=== PATIENT | male | born 1945 | race Caucasian/White ===

== ENCOUNTER 2020-09-27 15:04 | Outpatient (REF) | payer MEDICARE, SELFPAY | END 2020-09-27 15:05 | disposition home or self-care (01) | LOC: HO.LAB 15:04 | PROVIDERS: Visit Provider Nurse Practitioner Family | DX: L02.91 Cutaneous abscess, unspecified (principal) | CPT/HCPCS: 87071; 87205 ==

== ENCOUNTER 2022-02-18 18:55 | Emergency (ER) | payer MEDICARE, SELFPAY ==
[2022-02-18 19:00] VITALS: BP 188/88; PULSE 88; RESP 18; TEMP 36.1; O2SAT 96; BMI 34.9
--- NOTE | 2022-02-18 23:18 | ED_ITS ---
HPI - Animal Bite General Chief Complaint: Skin/Abscess/Foreign Body Stated Complaint: dog bite left thigh Time Seen by Provider: 02/18/22 23:14 Source: patient Mode of arrival: ambulatory Limitations: no limitations History of Present Illness HPI narrative: patient was at [employer] game some one walking with 2 doodle dogs 1 of the dog ran and bit him on his left thigh bit him on to his left thigh. Patient does not know about the office administration of the dog unable to find more details patient been vaccinated against rabies long time ago. Related Data Home Medications Medication Instructions Recorded Confirmed amoxicillin 500 mg capsule 2,000 mg PO ONCE 09/27/20 chlorhexidine gluconate 0.12 % 15 ml PO BID 09/27/20 mouthwash clopidogrel 75 mg tablet 75 mg PO DAILY 09/27/20 finasteride 5 mg tablet 5 mg PO DAILY 09/27/20 flu vacc [id number](65yr up)-PF 240 ml IM 09/27/20 mcg/0.7 mL intramuscular syringe levothyroxine 88 mcg tablet 88 mcg PO DAILY 09/27/20 naproxen 500 mg tablet 500 mg PO BID PRN 09/27/20 quetiapine 50 mg tablet 50 mg PO DAILY 09/27/20 simvastatin 40 mg tablet 40 mg PO BEDTIME 09/27/20 tamsulosin 0.4 mg capsule 0.8 mg PO DAILY 09/27/20 Previous Rx's Medication Instructions Recorded cephalexin 500 mg capsule (Keflex) 500 mg PO QID 7 Days #28 cap 09/27/20 sulfamethoxazole 800 1 tab PO Q12H 10 Days #20 tab 10/02/20 mg-trimethoprim 160 mg tablet (Bactrim DS) amoxicillin 875 mg-potassium 1 tab PO BID #20 tab 02/19/22 clavulanate 125 mg tablet Allergies Allergy/AdvReac Type Severity Reaction Status Date / Time No Known Allergies Allergy Verified 02/18/22 19:00 Review of Systems Review of Systems: Yes all other systems are reviewed and are negative [facility] Social History Social History Advance Directives: No Advance Directives Information Provided: No Physical Exam ED Vital Signs: Vital Signs - 24 hr 02/18/22 19:00 Temperature 97 F Pulse Rate 88 Respiratory Rate 18 Blood Pressure 188/88 H Pulse Oximetry 96 BMI result Body Mass Index 34.9 Skin Full body images: 1. Two small superficial dog bite puncture wound esquivel MDM - Animal Bite MDM Narrative Medical decision making narrative: patient was given rabies IG in the wound and in the left thigh and vaccinated against rabies advised to follow-up as scheduled for rabies vaccine Discharge Plan Discharge Clinical Impression: Dog bite Patient Disposition: Home, Self-Care Instructions: Animal Bite (ED) Additional Instructions: rabies vaccine as scheduled try to find the dog if you could find the dog let the department know antibiotic as advised Prescriptions: New amoxicillin-pot clavulanate 875-125 mg tablet 1 tab PO BID Qty: 20 0RF No Action sulfamethoxazole-trimethoprim [Bactrim DS] 800-160 mg tablet 1 tab PO Q12H 10 Days Qty: 20 0RF finasteride 5 mg tablet 5 mg PO DAILY 0RF tamsulosin 0.4 mg capsule 0.8 mg PO DAILY 0RF quetiapine 50 mg tablet 50 mg PO DAILY 0RF simvastatin 40 mg tablet 40 mg PO BEDTIME 0RF levothyroxine 88 mcg tablet 88 mcg PO DAILY 0RF clopidogrel 75 mg tablet 75 mg PO DAILY 0RF Fluzone HighDose Quad 20-21 PF 240 mcg/0.7 mL syringe IM 0RF amoxicillin 500 mg capsule 2,000 mg PO ONCE 0RF chlorhexidine gluconate 0.12 % mouthwash 15 ml PO BID 0RF naproxen 500 mg tablet 500 mg PO BID PRN (Reason: pain) 0RF cephalexin [Keflex] 500 mg capsule 500 mg PO QID 7 Days Qty: 28 0RF
[2022-02-19] MEDS: Rabies Vaccine (PCEC)/PF 1 ML VIAL IM (00:20)
[2022-02-19] MEDS: Amoxicillin/Potassium Clav 875 MG TABLET PO (00:22)
[2022-02-19] MEDS: Rabies Immune Globulin/PF 900 UNIT/3 ML VIAL 2000 UNIT IM (00:23)
== END 2022-02-19 00:57 | disposition home or self-care (01) ==
PROVIDERS: Emergency Provider Internal Medicine; PCP Nurse Practitioner Family
DX: S70.372A Other superficial bite of left thigh, initial encounter (principal); S70.312A Abrasion, left thigh, initial encounter; M79.652 Pain in left thigh; Z20.3 Contact with and (suspected) exposure to rabies; Z29.14 Encounter for prophylactic rabies immune globulin; W54.0XXA Bitten by dog, initial encounter; Y93.9 Activity, unspecified; Y92.830 Public park as the place of occurrence of the external cause; Y99.8 Other external cause status; Z79.899 Other long term (current) drug therapy
CPT/HCPCS: 90375; 90471; 90675; 96372; 99284

== ENCOUNTER 2022-02-21 13:31 | Outpatient (REF) | payer MEDICARE, SELFPAY | END 2022-02-21 13:32 | disposition home or self-care (01) | LOC: HO.MDS 13:31 | PROVIDERS: Visit Provider Internal Medicine | DX: Z29.14 Encounter for prophylactic rabies immune globulin (principal); S70.372D Other superficial bite of left thigh, subsequent encounter; W54.0XXD Bitten by dog, subsequent encounter; Z20.3 Contact with and (suspected) exposure to rabies | CPT/HCPCS: 90471; 90675 ==

== ENCOUNTER 2022-02-25 09:07 | Outpatient (REF) | payer MEDICARE, SELFPAY | END 2022-02-25 09:08 | disposition home or self-care (01) | LOC: HO.MDS 09:07 | PROVIDERS: Visit Provider Internal Medicine | DX: Z29.14 Encounter for prophylactic rabies immune globulin (principal); S70.372D Other superficial bite of left thigh, subsequent encounter; W54.0XXD Bitten by dog, subsequent encounter; Z20.3 Contact with and (suspected) exposure to rabies | CPT/HCPCS: 90471; 90675 ==

== ENCOUNTER 2022-03-05 08:08 | Outpatient (REF) | payer MEDICARE, SELFPAY | END 2022-03-05 08:09 | disposition home or self-care (01) | LOC: HO.MDS 08:08 | PROVIDERS: Visit Provider Internal Medicine | DX: Z29.14 Encounter for prophylactic rabies immune globulin (principal); S70.372D Other superficial bite of left thigh, subsequent encounter; W54.0XXD Bitten by dog, subsequent encounter; Z20.3 Contact with and (suspected) exposure to rabies | CPT/HCPCS: 90471; 90675 ==

== ENCOUNTER 2024-02-12 10:05 | Outpatient (AMB) | payer MEDICARE, SELFPAY ==
--- NOTE | 2024-02-12 10:14 | MHC.OFFVIS ---
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 Patient had recent MRI, results as per below. He reports midline axial back pain without radiation down either lower extremity. He has been diagnosed with spinal stenosis in the past. Saw a neurosurgery, Dr. Hernández, recently was told not a candidate for surgery. Complains of midline lumbar back pain, worse with movement, bending, twisting. Denies burning, numbness, tingling or electrical pains down either lower extremity. Patient denies pain, fatigue in his legs with walking. May has been going to physical therapy for several months, reports improvement in his function and mobility but pain persists. He has been going to acupuncture for 1 year with minimal improvement of his symptoms. A couple years ago he had spinal cord stimulator placed, did not tolerate. States was very cumbersome and difficult needed his daughter to help him manage the device. It was in place for approximately 9-12 months before having it removed. Overall, he felt the spinal cord stimulator was an awful experience that did not afford him any relief. He will not consider implantable neuromodulation again. He has tried Tylenol, naproxen/NSAIDs and prescription medications all without improvement of his symptoms. He reports minimal relief with lidocaine patches. Pain today is rated as a 4/10, worse in the mornings. In terms of muscle damage condition is described as dull, sore, aching, throbbing. Pain is negatively impacting patient's enjoyment of life, recreational activities, functional mobility. [facility] Medical History (Updated 02/12/24 @ 11:25 by Briana Price) Hypothyroidism AZUCENA (obstructive sleep apnea) Hypertension Chronic low back pain Chronic kidney disease Carotid artery stenosis Bipolar 1 disorder Arthritis of foot, degenerative Anxiety Allergic rhinitis Surgical History (Updated 02/12/24 @ 11:25 by Briana Price) Hx of laminectomy History of partial colectomy Hx of appendectomy History of tonsillectomy Social History (Updated 02/12/24 @ 10:22 by Briana Price) Alcohol intake: current Alcohol intake frequency: holidays/special occasions only Patient Tobacco Use Status: Former Tobacco user Tobacco use type: Cigarette Review of Systems Const All systems reviewed & are unremarkable except as noted in HPI and below Physical Exam Vital Signs: Last Vital Signs Pulse 86 02/12/24 10:21 BP 162/79 H 02/12/24 10:21 Pulse Ox 99 02/12/24 10:21 Oxygen Delivery Method Room Air 02/12/24 10:21 BMI result Body Mass Index 33.5 General: awake, alert, oriented. Answers questions appropriately. Fully engaged in examination. Skin: warm, dry, intact HEENT: Normocephalic. Hearing intact. Cardiac: External chest normal in appearance. Respiratory: No cough, audible wheezing or stridor. Abdomen: without gross distension. MS: No obvious swelling or deformities. Able to transition from sit to stand unassisted. Ambulates with bilaterally normal heel strike and toe off SLR negative bilaterally Negative footdrop negative clonus Facet loading positive bilaterally Lumbar range of motion limited Tender over midline lumbar vertebrae and lumbar paraspinal muscles Nontender over PSIS Bilateral lower extremity strength 5/5 DTR intact Neurological: Oriented to person, place, time and situation. Thought process intact. Ambulates with use of a cane Psychiatric: Appropriate mood and affect. Good judgment and insight. Results Reviewed Results Reviewed: 11/02/2023 MRI LS Assessment & Plan Assessment & Plan (1) Lumbar spondylosis: Code(s): M47.816 - Spondylosis without myelopathy or radiculopathy, lumbar region Category: Medical (2) Spinal stenosis of lumbar region: Code(s): M48.061 - Spinal stenosis, lumbar region without neurogenic claudication Category: Medical Plan Agustín is a very pleasant 79-year-old male who presented to the office today for evaluation management of his chronic lower back pain. Patient is suffering from axial back pain secondary to lumbar facet arthropathy. Patient has exhausted greater than 6 months of conservative therapy including [id number] medications, topical medications, physical therapy, home exercise program, prescription medications, neuromodulation all without improvement of his symptoms. Continue with PT and acupuncture. Prescription sent for Salonpas topical patches pain, use as directed. Discussed options for treatment including diagnostic interventional testing, therapeutic steroid injections, peripheral nerve stimulation with Sprint, RFA and more permanent neuromodulation. Patient is not interested in spinal cord stimulation or peripheral nerve stimulation due to previous negative experience. Will schedule for fluoroscopy guided diagnostic L3-L4 DR L5 medial branch blocks with local anesthetic. If patient reports positive results of diagnostic will plan for therapeutic MBBs versus RFA. All questions and concerns have been answered and patient agrees with the plan. Follow up after injections and sooner if needed. Medications: New capsaicin-menthol 0.025-1.25 % (Salonpas (capsaicin-menthol)) may leave on area for up to 8 hrs 1 patch topical BID 6 ea 3RF pain 7 days Coding Level of Care Code New Pt Level 4 (41191) Diagnoses Lumbar spondylosis M47.816 Spinal stenosis of lumbar region M48.061
[2024-02-12 10:21] VITALS: BP 162/79; PULSE 86; O2SAT 99; BMI 33.5
== END 2024-02-12 11:06 | disposition home or self-care (01) ==
PROVIDERS: PCP Nurse Practitioner Family; Referring Provider Nurse Practitioner Family; Visit Provider Registered Nurse Emergency
DX: M47.816 Spondylosis without myelopathy or radiculopathy, lumbar region (principal); M48.061 Spinal stenosis, lumbar region without neurogenic claudication
CPT/HCPCS: 99204

== ENCOUNTER → 2024-02-12 10:05 | Outpatient (BNVA) | payer MEDICARE, SELFPAY | PROVIDERS: PCP Nurse Practitioner Family; Referring Provider Nurse Practitioner Family; Visit Provider Registered Nurse Emergency | DX: M47.816 Spondylosis without myelopathy or radiculopathy, lumbar region (principal); M48.061 Spinal stenosis, lumbar region without neurogenic claudication | CPT/HCPCS: 99202 ==

== ENCOUNTER 2024-03-05 10:48 | Outpatient (AMB) | payer MEDICARE, SELFPAY ==
--- NOTE | 2024-03-05 10:51 | AM.OFFWIN_ITS ---
Intake Vital Signs 3 03/05/24 10:52 Height 5 ft 8 in Weight 233 lb BMI 35.4 BP 120/78 Blood Pressure Location Rt brachial Position Sitting Pulse 78 Pulse Source Pulse Oximeter Pulse Oximetry (%) 98 Oxygen Delivery Method Room Air Intake Visit Reasons: Est/ spot on lower back (lobby) Intake Note: Patient here to have Mole on lower back that was noticed yesterday at PT. Patient Tobacco Use Status: Former Tobacco user Allergies No Known Allergies Allergy (Verified 03/05/24 10:53) Do you need a note to return to daycare/school/sports/work: No HPI HPI Comments 2 History of Present Illness0 Details 79 y/o male patient who presents to walk in clinic with c/o Dark spots on his back. Pt was able to secure an appointment with [facility] for July. [facility] Medical History (Updated 02/12/24 @ 11:25 by Briana Price) Hypothyroidism AZUCENA (obstructive sleep apnea) Hypertension Chronic low back pain Chronic kidney disease Carotid artery stenosis Bipolar 1 disorder Arthritis of foot, degenerative Anxiety Allergic rhinitis Surgical History (Updated 02/12/24 @ 11:25 by Briana Price) Hx of laminectomy History of partial colectomy Hx of appendectomy History of tonsillectomy Social History (Updated 02/12/24 @ 10:22 by Briana Price) Alcohol intake: current Alcohol intake frequency: holidays/special occasions only Patient Tobacco Use Status: Former Tobacco user Tobacco use type: Cigarette Review of Systems Const All systems reviewed & are unremarkable except as noted in HPI and below Physical Exam Vital Signs: Last Vital Signs Pulse 78 03/05/24 10:52 BP 120/78 03/05/24 10:52 Pulse Ox 98 03/05/24 10:52 Oxygen Delivery Method Room Air 03/05/24 10:52 BMI result Body Mass Index 35.4 Const General: comfortable and no acute distress Nutritional Appearance: overweight Orientation/consciousness: patient oriented x3 Limitations: ambulation with cane Skin Other: Dark brown Spots on the mid and lower back skin Full body images: 2 1. Small Dark Brown spots, different sizes. Neuro General: patient oriented x3, gait normal and moves all extremities Psych Speech and movement: Normal speech and movement present Assessment & Plan Assessment & Plan (1) Age spots: Code(s): L81.4 - Other melanin hyperpigmentation Plan: Common condition; Spots appear on areas exposed to the sun, such as the face, hands, shoulders and arms. Pt will f/u with Derm as scheduled. Coding Level of Care Code Est Pt Level 3 (57125) Diagnoses Age spots L81.4 Time Spent (min) 15
[2024-03-05 10:52] VITALS: BP 120/78; PULSE 78; O2SAT 98; BMI 35.4
== END 2024-03-05 12:46 | disposition home or self-care (01) ==
PROVIDERS: PCP Nurse Practitioner Family; Visit Provider Nurse Practitioner Family
DX: L81.4 Other melanin hyperpigmentation (principal)
CPT/HCPCS: 99213

== ENCOUNTER 2024-04-06 06:15 | Outpatient (REF) | payer MEDICARE, SELFPAY ==
--- NOTE | ~2024-04-06 | FL_ITS ---
EXAMINATION: XR FLUOROSCOPY WITH IMAGES CLINICAL INFORMATION: Lumbar spondylosis. COMPARISON: None available. TECHNIQUE: Fluoroscopy Supervised By: Dr. Jimmy Cooper. Fluoroscopy Time: 0.7 minutes. Cumulative Dose: 26.1 mGy. DAP: 0.453 Gy-cm2. Images: 6. FINDINGS: Intraoperative fluoroscopy and spot films were performed during a procedure in the OR. [place] are present via transforaminal approach and what appears to be L4 and L5 bilaterally. Injected contrast media is seen to be in the epidural sheath around the nerve roots. Precise levels can not be ascertained secondary to marked coning of the images with lack of appropriate landmarks. Please correlate with Dr. Jimmy Cooper's report for complete details. FL/FL guidance in treatment room IMPRESSION: Intraoperative fluoroscopy and spot films were obtained. Please see Dr. Jimmy Cooper's report for complete details.
== END 2024-04-06 06:16 | disposition home or self-care (01) ==
LOC: CF 06:15
PROVIDERS: Visit Provider Anesthesiology
DX: M47.816 Spondylosis without myelopathy or radiculopathy, lumbar region (principal); M48.061 Spinal stenosis, lumbar region without neurogenic claudication
CPT/HCPCS: 64493; 64494; J2795; Q9967

== ENCOUNTER 2024-04-06 10:33 | Outpatient (AMB) | payer MEDICARE, SELFPAY ==
--- NOTE | 2024-04-06 10:39 | A.OFFVIS_ITS ---
Vital Signs 04/06/24 11:40 04/06/24 11:41 Height 5 ft 8 in 5 ft 8 in Weight 233 lb 233 lb BMI 35.4 35.4 BP 162/96 H 171/90 H Blood Pressure Location Lt brachial Lt brachial Position Sitting Sitting Respiration 14 14 Pulse 71 69 Pulse Source Pulse Oximeter Pulse Oximeter Pulse Oximetry (%) 98 97 Oxygen Delivery Method Room Air Room Air Comment pre-op post-op Intake Visit Reasons: Diagnostic L3-L4 DR L5 MMB's Allergies No Known Allergies Allergy (Verified 04/06/24 10:41) PFSH Medical History (Updated 02/12/24 @ 11:25 by Briana Price) Hypothyroidism AZUCENA (obstructive sleep apnea) Hypertension Chronic low back pain Chronic kidney disease Carotid artery stenosis Bipolar 1 disorder Arthritis of foot, degenerative Anxiety Allergic rhinitis Surgical History (Updated 02/12/24 @ 11:25 by Briana Price) Hx of laminectomy History of partial colectomy Hx of appendectomy History of tonsillectomy Social History (Updated 02/12/24 @ 10:22 by Briana Price) Alcohol intake: current Alcohol intake frequency: holidays/special occasions only Patient Tobacco Use Status: Former Tobacco user Tobacco use type: Cigarette Physical Exam Vital Signs: Last Vital Signs Pulse 69 04/06/24 11:41 Resp 14 04/06/24 11:41 BP 171/90 H 04/06/24 11:41 Pulse Ox 97 04/06/24 11:41 Oxygen Delivery Method Room Air 04/06/24 11:41 BMI result Body Mass Index 35.4 Assessment & Plan Assessment & Plan (1) Lumbar spondylosis: Code(s): M47.816 - Spondylosis without myelopathy or radiculopathy, lumbar region Category: Medical Plan: Diagnostic medial branch block L3,L4 dorsal ramus L5 bilateral.? ? ?Informed consent was explained to the patient. All questions were explained and? answered.? The patient was taken inside the operating room where she was positioned prone on the operating table. Time-out was performed delineating correct site, side, the nature of the procedure, patient's allergy, . All operating room staff was participating in OR time-out procedure. ? ? The lower back was prepped with ChloraPrep and draped with sterile towels.? C- arm was brought over the operating field and sq picture of L4-, L5 vertebra and S1 AREA were delineated on the screen.? Point of interest were delineated as confluence of superior articular process of L4 and L5 vertebra bilaterally with corresponding transverse processes as well as confluence of the sacral alae bilaterally with superior articular process of S1.? The projection of the point of interest to the skin were injected with the small amount of local anesthetic lidocaine 2% 1-1.5 cc.? After that 22 gauge 3.5 inch spinal needle was driven sequentially to the points of interest in tunnel vision fashion. After needles gently contacted the bone at the point of interests the needle was injected with small amount of the contrast.? The injection of the contrast did not demonstrate any intravascular or intrathecal spread of the contrast.? After that injection of the? ropivacaine 0.5%-1cc was performed at each needle location.??after that the needles were removed and Bandaids were applied. ? Upon completion of the injections? needle was? removed and sterile Band-Aids were applied.? The patient tolerated procedure very well. (2) Spinal stenosis of lumbar region: Code(s): M48.061 - Spinal stenosis, lumbar region without neurogenic claudication Category: Medical Plan Agustín is a very pleasant 79-year-old male who presented to the office today for evaluation management of his chronic lower back pain. Patient is suffering from axial back pain secondary to lumbar facet arthropathy. Patient has exhausted greater than 6 months of conservative therapy including [id number]-[id number] medications, topical medications, physical therapy, home exercise program, prescription medications, neuromodulation all without improvement of his symptoms. Continue with PT and acupuncture. Prescription sent for Salonpas topical patches pain, use as directed. Discussed options for treatment including diagnostic interventional testing, therapeutic steroid injections, peripheral nerve stimulation with Sprint, RFA and more permanent neuromodulation. Patient is not interested in spinal cord stimulation or peripheral nerve stimulation due to previous negative experience. Will schedule for fluoroscopy guided diagnostic L3-L4 DR L5 medial branch blocks with local anesthetic. If patient reports positive results of diagnostic will plan for therapeutic MBBs versus RFA. All questions and concerns have been answered and patient agrees with the plan. Follow up after injections and sooner if needed. Orders: Orders FL guidance in treatment room Today M47.816 - Spondylosis without myelopathy or radiculopathy, lumbar region Coding Level of Care Code Procedure Only Diagnoses Lumbar spondylosis M47.816 Spinal stenosis of lumbar region M48.061
[2024-04-06 11:40] VITALS: BP 162/96; PULSE 71; RESP 14; O2SAT 98; BMI 35.4
[2024-04-06 11:41] VITALS: BP 171/90; PULSE 69; RESP 14; O2SAT 97; BMI 35.4
== END 2024-04-06 11:47 | disposition home or self-care (01) ==
LOC: HO.PMCPRC 10:33
PROVIDERS: PCP Nurse Practitioner Family; Visit Provider Anesthesiology
DX: M47.816 Spondylosis without myelopathy or radiculopathy, lumbar region (principal); M48.061 Spinal stenosis, lumbar region without neurogenic claudication
CPT/HCPCS: 64493; 64494

== ENCOUNTER 2024-04-14 10:14 | Outpatient (AMB) | payer MEDICARE, SELFPAY ==
--- NOTE | 2024-04-14 10:18 | MHC.OFFVIS ---
Vital Signs 04/14/24 10:20 Height 5 ft 8 in Weight 233 lb BMI 35.4 BP 145/89 H Blood Pressure Location Lt brachial Position Sitting Respiration 16 Pulse 88 Pulse Source Pulse Oximeter Pulse Oximetry (%) 98 Oxygen Delivery Method Room Air Intake Visit Reasons: diagnostic L3-L4 DR L5 medial branch blocks Allergies No Known Allergies Allergy (Verified 04/14/24 10:21) Medication List - Last Reconciled 04/14/24 by Montserrat Soto LPN atorvastatin 20 mg PO DAILY carvedilol 6.25 mg PO BID clopidogrel 75 mg PO DAILY finasteride 5 mg PO DAILY mirabegron ER (Myrbetriq) 50 mg PO DAILY quetiapine 100 mg PO BEDTIME simvastatin 40 mg PO BEDTIME tamsulosin 0.8 mg PO DAILY HPI Comments Details: Patient presents the office today for follow-up, one-week status post bilateral diagnostic L3-L4 DR L5 medial branch blocks Patient reports 100% pain relief with improvement in functional mobility during the 6 hours after the procedure States even today pain is not as severe as it was prior to the injections Denies any untoward effects Denies any pain in his legs or fatigue with walking Denies any untoward effects of the procedure Prior: Agustín is a very pleasant 79-year-old male who presents to the office today for evaluation management of his lower back pain. Patient had recent MRI, results as per below. He reports midline axial back pain without radiation down either lower extremity. He has been diagnosed with spinal stenosis in the past. Saw a neurosurgery, Dr. Hernández, recently was told not a candidate for surgery. Complains of midline lumbar back pain, worse with movement, bending, twisting. Denies burning, numbness, tingling or electrical pains down either lower extremity. Patient denies pain, fatigue in his legs with walking. May has been going to physical therapy for several months, reports improvement in his function and mobility but pain persists. He has been going to acupuncture for 1 year with minimal improvement of his symptoms. A couple years ago he had spinal cord stimulator placed, did not tolerate. States was very cumbersome and difficult needed his daughter to help him manage the device. It was in place for approximately 9-12 months before having it removed. Overall, he felt the spinal cord stimulator was an awful experience that did not afford him any relief. He will not consider implantable neuromodulation again. He has tried Tylenol, naproxen/NSAIDs and prescription medications all without improvement of his symptoms. He reports minimal relief with lidocaine patches. Pain today is rated as a 4/10, worse in the mornings. In terms of muscle damage condition is described as dull, sore, aching, throbbing. Pain is negatively impacting patient's enjoyment of life, recreational activities, functional mobility. [facility] Medical History (Updated 02/12/24 @ 11:25 by Briana Price) Hypothyroidism AZUCENA (obstructive sleep apnea) Hypertension Chronic low back pain Chronic kidney disease Carotid artery stenosis Bipolar 1 disorder Arthritis of foot, degenerative Anxiety Allergic rhinitis Surgical History (Updated 02/12/24 @ 11:25 by Briana Price) Hx of laminectomy History of partial colectomy Hx of appendectomy History of tonsillectomy Social History (Updated 02/12/24 @ 10:22 by Briana Price) Alcohol intake: current Alcohol intake frequency: holidays/special occasions only Patient Tobacco Use Status: Former Tobacco user Tobacco use type: Cigarette Review of Systems Const All systems reviewed & are unremarkable except as noted in HPI and below Physical Exam Vital Signs: Last Vital Signs Pulse 88 04/14/24 10:20 Resp 16 04/14/24 10:20 BP 145/89 H 04/14/24 10:20 Pulse Ox 98 04/14/24 10:20 Oxygen Delivery Method Room Air 04/14/24 10:20 BMI result Body Mass Index 35.4 General: awake, alert, oriented. Answers questions appropriately. Fully engaged in examination. Skin: warm, dry, intact HEENT: Normocephalic. Hearing intact. Cardiac: External chest normal in appearance. Respiratory: No cough, audible wheezing or stridor. Abdomen: without gross distension. MS: No obvious swelling or deformities. Able to transition from sit to stand unassisted. Ambulates with bilaterally normal heel strike and toe off Neurological: Oriented to person, place, time and situation. Thought process intact. Ambulates with use of a cane Psychiatric: Appropriate mood and affect. Good judgment and insight. Results Reviewed Results Reviewed: 11/02/2023 MRI LS Assessment & Plan Assessment & Plan (1) Lumbar spondylosis: Code(s): M47.816 - Spondylosis without myelopathy or radiculopathy, lumbar region Category: Medical (2) Spinal stenosis of lumbar region: Code(s): M48.061 - Spinal stenosis, lumbar region without neurogenic claudication Category: Medical Plan Agustín is a very pleasant 79-year-old male who presented to the office today for follow-up, one-week status post bilateral diagnostic L3-L4 DR L5 medial branch blocks Reports 100% pain relief with improvement in functional mobility may 6 hours after the procedure. He has exhausted greater than 6 months of conservative therapy including [id number]-fbbekes medications, topical medications, physical therapy, home exercise program, prescription medications, neuromodulation all without improvement of his symptoms. Discussed options for treatment including therapeutic steroid injections, peripheral nerve stimulation with Sprint, RFA and more permanent neuromodulation. Patient is not interested in spinal cord stimulation or peripheral nerve stimulation due to previous negative experience. He would like to proceed with radiofrequency ablation Will schedule for fluoroscopy guided bilateral L3-L4 DR L5 RFA with local anesthetic. All questions and concerns have been answered and patient agrees with the plan. Follow up after procedure, sooner if needed. Coding Level of Care Code Est Pt Level 3 (58737) Diagnoses Lumbar spondylosis M47.816 Spinal stenosis of lumbar region M48.061
[2024-04-14 10:20] VITALS: BP 145/89; PULSE 88; RESP 16; O2SAT 98; BMI 35.4
== END 2024-04-14 10:36 | disposition home or self-care (01) ==
PROVIDERS: PCP Nurse Practitioner Family; Visit Provider Registered Nurse Emergency
DX: M47.816 Spondylosis without myelopathy or radiculopathy, lumbar region (principal); M48.061 Spinal stenosis, lumbar region without neurogenic claudication
CPT/HCPCS: 99213

== ENCOUNTER → 2024-04-14 10:14 | Outpatient (BNVA) | payer MEDICARE, SELFPAY | PROVIDERS: PCP Nurse Practitioner Family; Visit Provider Registered Nurse Emergency | DX: M47.816 Spondylosis without myelopathy or radiculopathy, lumbar region (principal); M48.061 Spinal stenosis, lumbar region without neurogenic claudication; Z98.890 Other specified postprocedural states | CPT/HCPCS: 99212 ==

== ENCOUNTER 2024-06-22 07:10 | Outpatient (REF) | payer MEDICARE, SELFPAY | END 2024-06-22 07:11 | disposition home or self-care (01) | LOC: CF 07:10 | PROVIDERS: Visit Provider Anesthesiology | DX: M47.816 Spondylosis without myelopathy or radiculopathy, lumbar region (principal); M48.061 Spinal stenosis, lumbar region without neurogenic claudication | CPT/HCPCS: 64493; 64494; J2795; Q9967 ==

== ENCOUNTER 2024-06-22 09:25 | Outpatient (AMB) | payer MEDICARE, SELFPAY ==
--- NOTE | 2024-06-22 09:45 | A.OFFVIS_ITS ---
Vital Signs 06/22/24 09:48 06/22/24 11:17 BP 140/88 H 144/88 H Blood Pressure Location Lt brachial Lt brachial Position Sitting Sitting Respiration 14 14 Pulse 71 67 Pulse Source Pulse Oximeter Pulse Oximeter Pulse Oximetry (%) 98 98 Oxygen Delivery Method Room Air Room Air Comment pre-op post-op Intake Visit Reasons: BILATERAL DIAGNOSTIC L3, L4, DRL5 MBB Allergies No Known Allergies Allergy (Verified 06/22/24 09:49) PFSH Medical History (Updated 02/12/24 @ 11:25 by Briana Price) Hypothyroidism AZUCENA (obstructive sleep apnea) Hypertension Chronic low back pain Chronic kidney disease Carotid artery stenosis Bipolar 1 disorder Arthritis of foot, degenerative Anxiety Allergic rhinitis Surgical History (Updated 02/12/24 @ 11:25 by Briana Price) Hx of laminectomy History of partial colectomy Hx of appendectomy History of tonsillectomy Social History (Updated 02/12/24 @ 10:22 by Briana Price) Alcohol intake: current Alcohol intake frequency: holidays/special occasions only Patient Tobacco Use Status: Former Tobacco user Tobacco use type: Cigarette Physical Exam Vital Signs: Last Vital Signs Pulse 67 06/22/24 11:17 Resp 14 06/22/24 11:17 BP 144/88 H 06/22/24 11:17 Pulse Ox 98 06/22/24 11:17 Oxygen Delivery Method Room Air 06/22/24 11:17 Assessment & Plan Assessment & Plan (1) Lumbar spondylosis: Code(s): M47.816 - Spondylosis without myelopathy or radiculopathy, lumbar region Category: Medical Plan: Diagnostic #2 medial branch block L3,L4 dorsal ramus L5 bilateral.? ? ?Informed consent was explained to the patient. All questions were explained and? answered.? The patient was taken inside the operating room where he was positioned prone on the operating table. Time-out was performed delineating correct site, side, the nature of the procedure, patient's allergy, . All operating room staff was participating in OR time-out procedure. ? ? The lower back was prepped with ChloraPrep and draped with sterile towels.? C- arm was brought over the operating field and sq picture of L4-, L5 vertebra and S1 AREA were delineated on the screen.? Point of interest were delineated as confluence of superior articular process of L4 and L5 vertebra bilaterally with corresponding transverse processes as well as confluence of the sacral alae bilaterally with superior articular process of S1.? The projection of the point of interest to the skin were injected with the small amount of local anesthetic lidocaine 2% 1-1.5 cc.? After that 22 gauge 3.5 inch spinal needle was driven sequentially to the points of interest in tunnel vision fashion. After needles gently contacted the bone at the point of interests the needle was injected with small amount of the contrast.? The injection of the contrast did not demonstrate any intravascular or intrathecal spread of the contrast.? After that injection of the? bupivacaine 0.5% with epinephrine was performed at each needle location.??after that the needles were removed and Bandaids were applied. ? Upon completion of the injections? needle was? removed and sterile Band-Aids were applied.? The patient tolerated procedure very well. (2) Spinal stenosis of lumbar region: Code(s): M48.061 - Spinal stenosis, lumbar region without neurogenic claudication Category: Medical Plan Agustín is a very pleasant 79-year-old male who presented to the office today for evaluation management of his chronic lower back pain. Patient is suffering from axial back pain secondary to lumbar facet arthropathy. Patient has exhausted greater than 6 months of conservative therapy including litg-xbt-nhnlrbm medications, topical medications, physical therapy, home exercise program, prescription medications, neuromodulation all without improvement of his symptoms. Continue with PT and acupuncture. Prescription sent for Salonpas topical patches pain, use as directed. Discussed options for treatment including diagnostic interventional testing, therapeutic steroid injections, peripheral nerve stimulation with Sprint, RFA and more permanent neuromodulation. Patient is not interested in spinal cord stimulation or peripheral nerve stimulation due to previous negative experience. Will schedule for fluoroscopy guided diagnostic L3-L4 DR L5 medial branch blocks with local anesthetic. If patient reports positive results of diagnostic will plan for therapeutic MBBs versus RFA. All questions and concerns have been answered and patient agrees with the plan. Follow up after injections and sooner if needed. Orders: Orders FL guidance in treatment room Today M47.816 - Spondylosis without myelopathy or radiculopathy, lumbar region Coding Level of Care Code Procedure Only Diagnoses Lumbar spondylosis M47.816 Spinal stenosis of lumbar region M48.061
[2024-06-22 09:48] VITALS: BP 140/88; PULSE 71; RESP 14; O2SAT 98
[2024-06-22 11:17] VITALS: BP 144/88; PULSE 67; RESP 14; O2SAT 98
== END 2024-06-22 11:11 | disposition home or self-care (01) ==
LOC: HO.PMCPRC 09:25
PROVIDERS: PCP Nurse Practitioner Family; Visit Provider Anesthesiology
DX: M47.816 Spondylosis without myelopathy or radiculopathy, lumbar region (principal); M48.061 Spinal stenosis, lumbar region without neurogenic claudication
CPT/HCPCS: 64493; 64494

== ENCOUNTER 2024-06-25 09:27 | Outpatient (AMB) | payer MEDICARE, SELFPAY ==
--- NOTE | 2024-06-25 09:46 | MHC.OFFVIS ---
Vital Signs 06/25/24 09:47 Height 5 ft 8 in Weight 225 lb BMI 34.2 BP 155/79 H Blood Pressure Location Rt brachial Position Sitting Pulse 76 Pulse Source Pulse Oximeter Pulse Oximetry (%) 95 Oxygen Delivery Method Room Air Intake Visit Reasons: BILATERAL DIAGNOSTIC L3, L4, DRL5 MBB Allergies No Known Allergies Allergy (Verified 06/25/24 09:47) Medication List - Last Reconciled 06/25/24 by Elmira Noble atorvastatin 20 mg PO DAILY carvedilol 6.25 mg PO BID clopidogrel 75 mg PO DAILY finasteride 5 mg PO DAILY mirabegron ER (Myrbetriq) 50 mg PO DAILY quetiapine 100 mg PO BEDTIME simvastatin 40 mg PO BEDTIME tamsulosin 0.8 mg PO DAILY HPI Comments Details: Agustín presents back to the office today for follow up, 2 days s/p repeat bilateral diagnostic L3-L4 DR L5 medial branch blocks He reports 100% pain relief for 3 hours after the injection and 90% over the last 2 days. Pain today rated as a 1/10 He has been able to do foam charger, walked, go to the gym since the procedure Denies any untoward effects Prior: Patient presents the office today for follow-up, one-week status post bilateral diagnostic L3-L4 DR L5 medial branch blocks Patient reports 100% pain relief with improvement in functional mobility during the 6 hours after the procedure States even today pain is not as severe as it was prior to the injections Denies any untoward effects Denies any pain in his legs or fatigue with walking Prior: Agustín is a very pleasant 79-year-old male who presents to the office today for evaluation management of his lower back pain. Patient had recent MRI, results as per below. He reports midline axial back pain without radiation down either lower extremity. He has been diagnosed with spinal stenosis in the past. Saw a neurosurgery, Dr. Hernández, recently was told not a candidate for surgery. Complains of midline lumbar back pain, worse with movement, bending, twisting. Denies burning, numbness, tingling or electrical pains down either lower extremity. Patient denies pain, fatigue in his legs with walking. May has been going to physical therapy for several months, reports improvement in his function and mobility but pain persists. He has been going to acupuncture for 1 year with minimal improvement of his symptoms. A couple years ago he had spinal cord stimulator placed, did not tolerate. States was very cumbersome and difficult needed his daughter to help him manage the device. It was in place for approximately 9-12 months before having it removed. Overall, he felt the spinal cord stimulator was an awful experience that did not afford him any relief. He will not consider implantable neuromodulation again. He has tried Tylenol, naproxen/NSAIDs and prescription medications all without improvement of his symptoms. He reports minimal relief with lidocaine patches. Pain today is rated as a 4/10, worse in the mornings. In terms of muscle damage condition is described as dull, sore, aching, throbbing. Pain is negatively impacting patient's enjoyment of life, recreational activities, functional mobility. [facility] Medical History (Updated 02/12/24 @ 11:25 by Briana Price) Hypothyroidism AZUCENA (obstructive sleep apnea) Hypertension Chronic low back pain Chronic kidney disease Carotid artery stenosis Bipolar 1 disorder Arthritis of foot, degenerative Anxiety Allergic rhinitis Surgical History (Updated 02/12/24 @ 11:25 by Briana Price) Hx of laminectomy History of partial colectomy Hx of appendectomy History of tonsillectomy Social History (Updated 02/12/24 @ 10:22 by Briana Price) Alcohol intake: current Alcohol intake frequency: holidays/special occasions only Patient Tobacco Use Status: Former Tobacco user Tobacco use type: Cigarette Review of Systems Const All systems reviewed & are unremarkable except as noted in HPI and below Physical Exam Vital Signs: Last Vital Signs Pulse 76 06/25/24 09:47 BP 155/79 H 06/25/24 09:47 Pulse Ox 95 06/25/24 09:47 Oxygen Delivery Method Room Air 06/25/24 09:47 BMI result Body Mass Index 34.2 General: awake, alert, oriented. Answers questions appropriately. Fully engaged in examination. Skin: warm, dry, intact HEENT: Normocephalic. Hearing intact. Cardiac: External chest normal in appearance. Respiratory: No cough, audible wheezing or stridor. Abdomen: without gross distension. MS: No obvious swelling or deformities. Able to transition from sit to stand unassisted. Ambulates with bilaterally normal heel strike and toe off Neurological: Oriented to person, place, time and situation. Thought process intact. Ambulates with use of a cane Psychiatric: Appropriate mood and affect. Good judgment and insight. Results Reviewed Results Reviewed: 11/02/2023 MRI LS Assessment & Plan Assessment & Plan (1) Lumbar spondylosis: Code(s): M47.816 - Spondylosis without myelopathy or radiculopathy, lumbar region Category: Medical (2) Spinal stenosis of lumbar region: Code(s): M48.061 - Spinal stenosis, lumbar region without neurogenic claudication Category: Medical Plan Agustín is a very pleasant 79-year-old male who presented to the office today for follow-up, 2 days status post repeat bilateral diagnostic L3-L4 DR L5 medial branch blocks Reports 100% pain relief with improvement in functional mobility for 3 hours after the procedure, followed by 90% pain relief for the last 2 days He has exhausted greater than 6 months of conservative therapy including wfut-mif-xqtwglu medications, topical medications, physical therapy, home exercise program, prescription medications, neuromodulation all without improvement of his symptoms. Discussed options for treatment including therapeutic steroid injections, peripheral nerve stimulation with Sprint, RFA and more permanent neuromodulation. Will schedule for fluoroscopy guided bilateral L3-L4 DR L5 RFA with sedation. All questions and concerns have been answered and patient agrees with the plan. Follow up after procedure, sooner if needed. Coding Level of Care Code Est Pt Level 3 (12045) Complex EM visit Add On G2211 Diagnoses Lumbar spondylosis M47.816 Spinal stenosis of lumbar region M48.061
[2024-06-25 09:47] VITALS: BP 155/79; PULSE 76; O2SAT 95; BMI 34.2
== END 2024-06-25 09:54 | disposition home or self-care (01) ==
PROVIDERS: PCP Nurse Practitioner Family; Visit Provider Registered Nurse Emergency
DX: M47.816 Spondylosis without myelopathy or radiculopathy, lumbar region (principal); M48.061 Spinal stenosis, lumbar region without neurogenic claudication
CPT/HCPCS: 99213; G2211

== ENCOUNTER → 2024-06-25 09:27 | Outpatient (BNVA) | payer MEDICARE, SELFPAY | PROVIDERS: PCP Nurse Practitioner Family; Visit Provider Registered Nurse Emergency | DX: M47.816 Spondylosis without myelopathy or radiculopathy, lumbar region (principal); M48.061 Spinal stenosis, lumbar region without neurogenic claudication | CPT/HCPCS: 99212 ==

== ENCOUNTER 2024-08-06 07:52 | Day surgery (SDC) | payer MEDICARE, SELFPAY ==
--- NOTE | 2024-08-06 08:50 | ECG_ITS ---
Test Reason : carotid disease, htn Blood Pressure : / mmHG Vent. Rate : 068 BPM Atrial Rate : 068 BPM P-R Int : 194 ms QRS Dur : 082 ms QT Int : 388 ms P-R-T Axes : 035 028 008 degrees QTc Int : 412 ms Normal sinus rhythm Normal ECG When compared with ECG of 01-MAY-2003 12:04, No significant change was found Referred By: Breanna Sawant Electronically Signed By:HEYD HOUSTON
[2024-08-06 08:54] VITALS: BMI 33.5
[2024-08-06 08:58] VITALS: BMI 33.5
--- NOTE | 2024-08-06 08:58 | MHC.SHP ---
Pre-Procedural Eval Section A - 24 Hr Update-Section A only Date of Service: 08/06/24 The patient is an INPATIENT: No Changes since office visit: Yes Patient answered all questions The patient has been examined within 24 hours of the surgical procedure. The History & Physical has been completed within 30 days and I have reviewed it.: No Section B - Complete if H&P > 30 days Chief Complaint: Spondylosis without myelopathy or radiculopathy, Details of Present Illness: As above Relevant Social History: None Present Medications: see Short Stay Collaborative assessment Medical History: No relevant PMH History of Previous Operations: No relevant previous surgery Allergies: Allergies Allergy/AdvReac Type Severity Reaction Status Date / Time No Known Allergies Allergy Verified 06/25/24 09:47 Review of Systems Sugical H&P ROS: Negative: Constitution, Cardiovascular, Respiratory, Neurological, Psychiatric, Hem-Onc, Allergic/Immunologic, Gastrointestinal, Genitourinary, Integumentary, Endocrine and Eyes/Ears/Nose/Throat and Yes, Specify: Musculoskeletal (Spondylosis lumbar) Exam Surgical H&P Exam: Normal: HEENT, Normal: Heart, Normal: Lungs, Normal: Extremities, Normal: Abdomen, Normal: Skin and Normal: Neurological Plan Diagnosis/Plan: Unchanged I have reviewed the history and physical and performed a pertinent physical examination on my patient. No changes have occurred unless specified. Time Spent With Patient Time: Total time managing care of this patient today ____ minutes.
[2024-08-06 09:05] VITALS: BP 186/98; PULSE 71; RESP 18; TEMP 36.4; O2SAT 100
--- NOTE | 2024-08-06 09:15 | P.CONAN_ITS ---
[facility] Active Problems Active Problems: All Active Problems Spinal stenosis of lumbar region (Acute) Lumbar spondylosis (Acute) Cellulitis (Acute) Lipoma of back (Acute) Abscess (Acute) Past Medical History Medical History FH: total knee replacement Hypothyroidism AZUCENA (obstructive sleep apnea) Hypertension Chronic low back pain Chronic kidney disease Carotid artery stenosis Bipolar 1 disorder Arthritis of foot, degenerative Anxiety Allergic rhinitis Surgical History Surgical History Hx of laminectomy History of partial colectomy Hx of appendectomy History of tonsillectomy History of Problems with Anesthesia: No Social History Social History Alcohol intake: current Alcohol intake frequency: holidays/special occasions only Patient Tobacco Use Status: Former Tobacco user Tobacco use type: Cigarette Use of substances other than those prescribed or required for medical reasons: No Are you DNR?: No Advance Directives: No Advance Directives Information Provided: Yes Advance Directives on File: No Recently lost weight without trying: No Nutrition Risks: No Nutritional Risk Poor oral hygiene: No Meds Allergies Allergy/AdvReac Type Severity Reaction Status Date / Time No Known Allergies Allergy Verified 06/25/24 09:47 Home Medications ?Medication ?Instructions ?Recorded ?Confirmed ?Last Taken ?Type clopidogrel 75 mg tablet 75 mg PO DAILY 09/27/20 06/25/24 08/01/24 History finasteride 5 mg tablet 5 mg PO DAILY 09/27/20 06/25/24 Unknown History simvastatin 40 mg tablet 40 mg PO BEDTIME 09/27/20 06/25/24 Unknown History tamsulosin 0.4 mg capsule 0.8 mg PO DAILY 09/27/20 06/25/24 Unknown History atorvastatin 20 mg tablet 20 mg PO DAILY 02/12/24 06/25/24 Unknown History mirabegron 50 mg tablet,extended 50 mg PO DAILY 02/12/24 06/25/24 Unknown History release 24 hr (Myrbetriq) quetiapine 100 mg tablet 100 mg PO BEDTIME 02/12/24 06/25/24 Unknown History carvedilol 3.125 mg tablet 6.25 mg PO BID 03/05/24 06/25/24 08/06/24 History Exam Height,Weight and Vital Signs: Height 5 ft 8 in Weight 99.904 kg Airway Mallampati Class: III TM Dist: >3cm Neck ROM: Full Loose/Missing/Broken Teeth: No Heart: RRR Lungs: CTA Assessment and Plan Assessment Anesthesia Assessment: Anesthesia Plan Discussed and Chart Reviewed Final Anesthetic Review History of Problems with Anesthesia: No NPO: Yes ASA Class: III Final Preanesthetic Review: Meds/Allgs Chart Reviewed, Consent Obtained/Reviewed and Anes Risks/Benef Reviewed Patient Risk: Intermediate Procedure Risk: Low
--- NOTE | 2024-08-06 09:15 | W.PM.OPN ---
Operative Note Operative Note Date of Service: 08/06/24 Narrative: Medial branches L3,L4 , dorsal ramus L5 bilateral radiofrequency ablation.? ? ?Informed consent was explained to the patient. Risks of bleeding, infection, peripheral nerve damage were carefully explained to the patient. The patient expressed understanding. All questions were explained and? answered.? The patient was taken inside the operating room where he was positioned prone on the operating table. [place] [employer] monitors were applied and patient was moderately sedated. All the time I was able to maintain conversation with this patient during the case. Time-out was performed delineating correct site, side, the nature of the procedure, patient's allergy, . All operating room staff was participating in OR time-out procedure. ? ? The lower back was prepped with ChloraPrep and draped with sterile towels.? C-arm was brought over the operating field and sq picture of L4-, L5 vertebra and S1 AREA were delineated on the screen.? Point of interest were delineated as confluence of superior articular process of L4 and L5 vertebra bilaterally with corresponding transverse processes as well as confluence of the sacral alae bilaterally with superior articular process of S1.? The projection presumable direction of the point of interest to the skin were injected with the small amount of local anesthetic lidocaine 2% 1-1.5 cc.? After that 100 mm radiofrequency cannulas were driven sequentially to the points of interest in tunnel vision fashion 1st on the right and then on the left. After needles gently contacted the bone at the point of interests 1st on the right and then on the left the stylets of the needles were replaced with radiofrequency nitinol probes andsensory and motor sensation were tested for the patient. The patient reported no contractions or movements in the bilateral lower extremities tested at the right as well as at the left. After that the radiofrequency probes were withdrawn briefly and each needle was injected with mixture of ropivacaine 0.5% and lidocaine 2% one-to-one with trace amount of Kenalog. After that the radiofrequency probes were reinserted and energy was applied to the level of the 89 degrees centigrade for 90 seconds. After energy application on the 1st time the needles were rotated 180 degrees and energy application was repeated. Upon completion of the energy application the needles were removed sterile Band-Aid was applied. The patient tolerated procedure well. He was taken outside of the operating room
[2024-08-06] MEDS: Lactated Ringers 1,000 ML 80 ML IVCONT (09:26)
[2024-08-06 10:35] VITALS: BP 166/89; PULSE 65; RESP 16; TEMP 36.3; O2SAT 98
[2024-08-06 10:50] VITALS: BP 166/80; PULSE 64; RESP 16; O2SAT 98
--- NOTE | 2024-08-06 11:03 | PM.OP ---
Brief Operative Note Date of Service: 08/06/24 Pre-op diagnosis: spondylosis lumbar without myelopathy or radiculopathy Post-op diagnosis: same Procedure: RFA L3- L4- DRL5 bilateral Surgeon: Jimmy Cooper MD Anesthesia: MAC Was an Gynecological Assistant used for this Procedure?: No Estimated blood loss (mL): 2 Condition: stable Disposition: PACU
[2024-08-06 11:04] VITALS: BP 146/86; PULSE 65; RESP 16; TEMP 36.3; O2SAT 98
== END 2024-08-06 11:56 | disposition home or self-care (01) ==
PROVIDERS: PCP Nurse Practitioner Family; Visit Provider Anesthesiology
PROC: (CPT 64635; principal; 2024-08-06 10:00)
DX: M47.816 Spondylosis without myelopathy or radiculopathy, lumbar region (principal); G89.29 Other chronic pain; M48.061 Spinal stenosis, lumbar region without neurogenic claudication; I12.9 Hypertensive chronic kidney disease with stage 1 through stage 4 chronic kidney disease, or unspecified chronic kidney disease; I65.29 Occlusion and stenosis of unspecified carotid artery; N18.9 Chronic kidney disease, unspecified; E03.9 Hypothyroidism, unspecified; G47.33 Obstructive sleep apnea (adult) (pediatric); Z79.899 Other long term (current) drug therapy; Z98.890 Other specified postprocedural states; Z87.891 Personal history of nicotine dependence
CPT/HCPCS: 64635; 64636 ×2; 93005; J2003; J2250; J2795; J3010; J3301

== ENCOUNTER → 2024-08-06 07:52 | Outpatient (BNV) | payer MEDICARE, SELFPAY | PROVIDERS: PCP Nurse Practitioner Family; Visit Provider Anesthesiology | DX: M47.816 Spondylosis without myelopathy or radiculopathy, lumbar region (principal) | CPT/HCPCS: 64635; 64636 ==

== ENCOUNTER → 2024-08-06 08:50 | Outpatient (BNV) | payer MEDICARE, SELFPAY | PROVIDERS: PCP Nurse Practitioner Family; Visit Provider Internal Medicine | DX: I77.9 Disorder of arteries and arterioles, unspecified (principal); I10 Essential (primary) hypertension | CPT/HCPCS: 93010 ==

== ENCOUNTER 2024-08-27 10:32 | Outpatient (AMB) | payer MEDICARE, SELFPAY ==
--- NOTE | 2024-08-27 10:35 | MHC.OFFVIS ---
Vital Signs 08/27/24 10:40 Height 5 ft 8 in Weight 236 lb 4 oz BMI 35.9 BP 148/84 H Blood Pressure Location Lt brachial Position Sitting Respiration 16 Pulse 76 Pulse Source Pulse Oximeter Pulse Oximetry (%) 98 Oxygen Delivery Method Room Air Intake Visit Reasons: Discomfort from RFA Procedure Allergies No Known Allergies Allergy (Verified 08/27/24 10:41) HPI Comments Details: Patient presents back to the office today for follow-up, 1 month status post bilateral lumbar RFA He reports up until last week 80% pain relief with improvement in functional mobility Four days ago developed pain after going to the gym and using multiple back machines Pain is worse with movement and palpation. Pain today is rated as a 5/6. Radiation of the pain down either lower extremity. Denies red flag symptoms including new loss of bowel, bladder or saddle anesthesia No change in his midline lower back pain since the procedure Prior: Agustín presents back to the office today for follow up, 2 days s/p repeat bilateral diagnostic L3-L4 DR L5 medial branch blocks He reports 100% pain relief for 3 hours after the injection and 90% over the last 2 days. 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 Patient had recent MRI, results as per below. He reports midline axial back pain without radiation down either lower extremity. He has been diagnosed with spinal stenosis in the past. Saw a neurosurgery, Dr. Hernández, recently was told not a candidate for surgery. Complains of midline lumbar back pain, worse with movement, bending, twisting. Denies burning, numbness, tingling or electrical pains down either lower extremity. Patient denies pain, fatigue in his legs with walking. May has been going to physical therapy for several months, reports improvement in his function and mobility but pain persists. He has been going to acupuncture for 1 year with minimal improvement of his symptoms. A couple years ago he had spinal cord stimulator placed, did not tolerate. States was very cumbersome and difficult needed his daughter to help him manage the device. It was in place for approximately 9-12 months before having it removed. Overall, he felt the spinal cord stimulator was an awful experience that did not afford him any relief. He will not consider implantable neuromodulation again. He has tried Tylenol, naproxen/NSAIDs and prescription medications all without improvement of his symptoms. He reports minimal relief with lidocaine patches. Pain today is rated as a 4/10, worse in the mornings. In terms of muscle damage condition is described as dull, sore, aching, throbbing. Pain is negatively impacting patient's enjoyment of life, recreational activities, functional mobility. [facility] Medical History FH: total knee replacement Hypothyroidism AZUCENA (obstructive sleep apnea) Hypertension Chronic low back pain Chronic kidney disease Carotid artery stenosis Bipolar 1 disorder Arthritis of foot, degenerative Anxiety Allergic rhinitis Surgical History Hx of laminectomy History of partial colectomy Hx of appendectomy History of tonsillectomy Social History Alcohol intake: current Alcohol intake frequency: holidays/special occasions only Patient Tobacco Use Status: Former Tobacco user Tobacco use type: Cigarette Review of Systems Const All systems reviewed & are unremarkable except as noted in HPI and below Physical Exam Vital Signs: Last Vital Signs Pulse 76 08/27/24 10:40 Resp 16 08/27/24 10:40 BP 148/84 H 08/27/24 10:40 Pulse Ox 98 08/27/24 10:40 Oxygen Delivery Method Room Air 08/27/24 10:40 BMI result Body Mass Index 35.9 General: awake, alert, oriented. Answers questions appropriately. Fully engaged in examination. Skin: warm, dry, intact HEENT: Normocephalic. Hearing intact. Cardiac: External chest normal in appearance. Respiratory: No cough, audible wheezing or stridor. Abdomen: without gross distension. MS: No obvious swelling or deformities. Able to transition from sit to stand unassisted. Ambulates with bilaterally normal heel strike and toe off Limited lumbar range of motion secondary to pain Tenderness to palpation right lumbar musculature Nontender over midline lumbar vertebrae and lumbar paraspinal muscles Valsalva negative Neurological: Oriented to person, place, time and situation. Thought process intact. Ambulates with use of a cane Psychiatric: Appropriate mood and affect. Good judgment and insight. Assessment & Plan Assessment & Plan (1) Lumbar spondylosis: Code(s): M47.816 - Spondylosis without myelopathy or radiculopathy, lumbar region Category: Medical (2) Spinal stenosis of lumbar region: Code(s): M48.061 - Spinal stenosis, lumbar region without neurogenic claudication Category: Medical (3) Lumbar back sprain: Code(s): S33.5XXA - Sprain of ligaments of lumbar spine, initial encounter Category: Medical Plan Agustín is a very pleasant 79-year-old male who presented to the office today for follow-up, 1 month status post bilateral L3-L4 DR L5 RFA Initially felt 80% pain relief with improvement in functional ability. Four days ago after working at the gym developed right lumbar back pain X-ray ordered for evaluation Lidocaine patches, on for 12 hours off for 12 hours. Apply to most painful area Baclofen 5 mg p.o. 3 times daily as needed. Patient advised on cautions views All questions and concerns were answered, patient agrees with the plan. Follow up in 2 weeks, sooner if needed Orders: Orders XR lumbar spine 4V min Today M47.816 - Spondylosis without myelopathy or radiculopathy, lumbar region Medications: New baclofen may cause drowsiness, no driving while taking this medication. do not take with alcohol or other NIGHT COORDINATOR depressants 5 mg PO TID PRN 90 tabs 0RF muscle spasm lidocaine 4% (Salonpas (lidocaine)) Apply to most painful area once daily as needed. Leave on for 12 hours, off for 12 hours 1 patch topical DAILY PRN 15 ea 3RF pain Coding Level of Care Code Est Pt Level 3 (62272) Complex EM visit Add On G2211 Diagnoses Lumbar spondylosis M47.816 Spinal stenosis of lumbar region M48.061 Lumbar back sprain S33.5XXA
[2024-08-27 10:40] VITALS: BP 148/84; PULSE 76; RESP 16; O2SAT 98; BMI 35.9
== END 2024-08-27 11:22 | disposition home or self-care (01) ==
PROVIDERS: PCP Nurse Practitioner Family; Visit Provider Registered Nurse Emergency
DX: M47.816 Spondylosis without myelopathy or radiculopathy, lumbar region (principal); M48.061 Spinal stenosis, lumbar region without neurogenic claudication; S33.5XXA Sprain of ligaments of lumbar spine, initial encounter
CPT/HCPCS: 99213; G2211

== ENCOUNTER 2024-08-27 10:32 | Outpatient (REF) | payer MEDICARE, SELFPAY ==
--- NOTE | ~2024-08-27 | XR_ITS ---
EXAMINATION: X-rays lumbar spine. CLINICAL INFORMATION: Spondylosis without myelopathy or radiculopathy, lumbar region. COMPARISON: No priors. TECHNIQUE: 5 views. FINDINGS: Multilevel marginal osteophyte formation and syndesmophyte formation. Decreased intervertebral disc height at L5-S1 and L3-4 level. Levoconvex curvature. No acute cortical disruption or gross malalignment. No lytic or blastic lesions. Degenerative changes in the right coxofemoral joint. XR/XR lumbar spine 4V min IMPRESSION: Multilevel thoracolumbar spondylosis without acute fracture. Osteoarthrosis, right hip. Electronically signed by: Douglas Turpin MD 08/27/2024 03:50 PM EST
== END 2024-08-27 10:33 | disposition home or self-care (01) ==
LOC: HO.XRAY 10:32
PROVIDERS: PCP Nurse Practitioner Family; Visit Provider Registered Nurse Emergency
DX: M47.816 Spondylosis without myelopathy or radiculopathy, lumbar region (principal); M48.061 Spinal stenosis, lumbar region without neurogenic claudication; S33.5XXA Sprain of ligaments of lumbar spine, initial encounter; Z98.890 Other specified postprocedural states
CPT/HCPCS: 72110; 99212

== ENCOUNTER → 2024-08-27 11:13 | Outpatient (BNV) | payer MEDICARE, SELFPAY | PROVIDERS: PCP Nurse Practitioner Family; Visit Provider Radiology Diagnostic Radiology | DX: M47.895 Other spondylosis, thoracolumbar region (principal) | CPT/HCPCS: 72110 ==

== ENCOUNTER 2024-09-10 09:16 | Outpatient (AMB) | payer MEDICARE, SELFPAY ==
--- NOTE | 2024-09-10 09:18 | A.OFFVIS_ITS ---
Vital Signs 3 09/10/24 09:22 Height 5 ft 8 in Weight 230 lb BMI 35.0 BP 156/74 H Blood Pressure Location Rt brachial Position Sitting Pulse 78 Pulse Source Pulse Oximeter Pulse Oximetry (%) 96 Oxygen Delivery Method Room Air Intake Visit Reasons: S/p B/l L3-L4-DR L5 MB RFA 08/06/24 Intake Note: Pain today 3/10 Project Program Manager Required: No Accompanied by: Self / Same As Patient Allergies No Known Allergies Allergy (Verified 09/10/24 09:22) HPI Comments Details: Agustín presents back to the office today for follow-up lower back pain Has been going to physical therapy for his back and also taking baclofen 5 mg 3 times daily. Since last visit back pain has improved, rated today as 3/10. Has been going to the gym and doing light exercises. No longer doing any weightlifting or back machines. Today he would also like to discuss his right knee pain. This is chronic in nature. He had right knee replacement many years ago. Currently doing physical therapy with minimal improvement. He is unable to take nonsteroidal anti- inflammatory medications due to current use of anticoagulants. No improvement with rest, ice, prescription medications, topical medications. Prior: Patient presents back to the office today for follow-up, 1 month status post bilateral lumbar RFA He reports up until last week 80% pain relief with improvement in functional mobility Four days ago developed pain after going to the gym and using multiple back machines Pain is worse with movement and palpation. Pain today is rated as a 5/10. Radiation of the pain down either lower extremity. Denies red flag symptoms including new loss of bowel, bladder or saddle anesthesia No change in his midline lower back pain since the procedure Prior: Agustín presents back to the office today for follow up, 2 days s/p repeat bilateral diagnostic L3-L4 DR L5 medial branch blocks He reports 100% pain relief for 3 hours after the injection and 90% over the last 2 days. 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 Patient had recent MRI, results as per below. He reports midline axial back pain without radiation down either lower extremity. He has been diagnosed with spinal stenosis in the past. Saw a neurosurgery, Dr. Hernández, recently was told not a candidate for surgery. Complains of midline lumbar back pain, worse with movement, bending, twisting. Denies burning, numbness, tingling or electrical pains down either lower extremity. Patient denies pain, fatigue in his legs with walking. May has been going to physical therapy for several months, reports improvement in his function and mobility but pain persists. He has been going to acupuncture for 1 year with minimal improvement of his symptoms. A couple years ago he had spinal cord stimulator placed, did not tolerate. States was very cumbersome and difficult needed his daughter to help him manage the device. It was in place for approximately 9-12 months before having it removed. Overall, he felt the spinal cord stimulator was an awful experience that did not afford him any relief. He will not consider implantable neuromodulation again. He has tried Tylenol, naproxen/NSAIDs and prescription medications all without improvement of his symptoms. He reports minimal relief with lidocaine patches. Pain today is rated as a 4/10, worse in the mornings. In terms of muscle damage condition is described as dull, sore, aching, throbbing. Pain is negatively impacting patient's enjoyment of life, recreational activities, functional mobility. [facility] Medical History FH: total knee replacement Hypothyroidism AZUCENA (obstructive sleep apnea) Hypertension Chronic low back pain Chronic kidney disease Carotid artery stenosis Bipolar 1 disorder Arthritis of foot, degenerative Anxiety Allergic rhinitis Surgical History Hx of laminectomy History of partial colectomy Hx of appendectomy History of tonsillectomy Social History Alcohol intake: current Alcohol intake frequency: holidays/special occasions only Patient Tobacco Use Status: Former Tobacco user Tobacco use type: Cigarette Review of Systems Const All systems reviewed & are unremarkable except as noted in HPI and below Physical Exam Vital Signs: Last Vital Signs Pulse 78 09/10/24 09:22 BP 156/74 H 09/10/24 09:22 Pulse Ox 96 09/10/24 09:22 Oxygen Delivery Method Room Air 09/10/24 09:22 BMI result Body Mass Index 35.0 General: awake, alert, oriented. Answers questions appropriately. Fully engaged in examination. Skin: warm, dry, intact HEENT: Normocephalic. Hearing intact. Cardiac: External chest normal in appearance. Respiratory: No cough, audible wheezing or stridor. Abdomen: without gross distension. MS: No obvious swelling or deformities. Able to transition from sit to stand unassisted. Tenderness to palpation right lumbar musculature Nontender over midline lumbar vertebrae and lumbar paraspinal muscles Right knee: No swelling or deformity. Minimally tender to palpation. Range of motion intact. Neurological: Oriented to person, place, time and situation. Thought process intact. Ambulates with use of a cane Psychiatric: Appropriate mood and affect. Good judgment and insight. Results Reviewed Results Reviewed: 08/27/24 x-ray lumbar spine FINDINGS: Multilevel marginal osteophyte formation and syndesmophyte formation. Decreased intervertebral disc height at L5-S1 and L3-4 level. Levoconvex curvature. No acute cortical disruption or gross malalignment. No lytic or blastic lesions. Degenerative changes in the right coxofemoral joint. IMPRESSION: Multilevel thoracolumbar spondylosis without acute fracture. Osteoarthrosis, right hip. 11/02/2023 MRI LS Assessment & Plan Assessment & Plan (1) Lumbar spondylosis: Code(s): M47.816 - Spondylosis without myelopathy or radiculopathy, lumbar region Category: Medical (2) Spinal stenosis of lumbar region: Code(s): M48.061 - Spinal stenosis, lumbar region without neurogenic claudication Category: Medical (3) Lumbar back sprain: Code(s): S33.5XXA - Sprain of ligaments of lumbar spine, initial encounter Category: Medical Plan Agustín is a very pleasant 79-year-old male who presented to the office today for follow-up lower back pain Baclofen dose increased to 10mg po TID as needed XRAY right knee ordered for eval Patient has exhausted conservative therapy including [id number] medications, topical medications, physical therapy, home exercise program, prescription medications all without improvement of the symptoms. Patient on Plavix, unable to take nonsteroidal anti-inflammatory medications. Discussed options for treatment including diagnostic testing, therapeutic injections, temporary PNS, implantable devices, radiofrequency ablation. Will schedule for fluoroscopy guided right diagnostic genicular nerve blocks with local anesthetic. All questions and concerns were answered, patient agrees with the plan. Follow up after injections, sooner if needed Orders: Orders 2 XR knee RT 3V Today M25.561 - Pain in right knee Medications: Changed 2 From baclofen may cause drowsiness, no driving while taking this medication. do not take with alcohol or other PIPE WRAPPING MACHINE OPERATOR depressants 5 mg PO TID PRN 90 tabs 0RF muscle spasm To baclofen may cause drowsiness, no driving while taking this medication. do not take with alcohol or other PIPE WRAPPING MACHINE OPERATOR depressants 10 mg PO TID PRN 90 tabs 1RF muscle spasm Coding Level of Care Code Est Pt Level 3 (59860) Complex EM visit Add On G2211 Diagnoses Lumbar spondylosis M47.816 Spinal stenosis of lumbar region M48.061 Lumbar back sprain S33.5XXA
[2024-09-10 09:22] VITALS: BP 156/74; PULSE 78; O2SAT 96; BMI 35.0
== END 2024-09-10 09:52 | disposition home or self-care (01) ==
PROVIDERS: PCP Nurse Practitioner Family; Visit Provider Registered Nurse Emergency
DX: M47.816 Spondylosis without myelopathy or radiculopathy, lumbar region (principal); M48.061 Spinal stenosis, lumbar region without neurogenic claudication; S33.5XXA Sprain of ligaments of lumbar spine, initial encounter
CPT/HCPCS: 99213; G2211

== ENCOUNTER → 2024-09-10 09:16 | Outpatient (BNVA) | payer MEDICARE, SELFPAY | PROVIDERS: PCP Nurse Practitioner Family; Visit Provider Registered Nurse Emergency | DX: M47.816 Spondylosis without myelopathy or radiculopathy, lumbar region (principal); M48.061 Spinal stenosis, lumbar region without neurogenic claudication; M25.561 Pain in right knee; S33.5XXA Sprain of ligaments of lumbar spine, initial encounter; X58.XXXA Exposure to other specified factors, initial encounter; Y93.9 Activity, unspecified; Y92.9 Unspecified place or not applicable; Y99.9 Unspecified external cause status | CPT/HCPCS: 99212 ==

== ENCOUNTER 2024-09-13 10:30 | Outpatient (REF) | payer MEDICARE, SELFPAY | END 2024-09-13 10:31 | disposition home or self-care (01) | LOC: HO.HMGCX 10:30 | PROVIDERS: PCP Nurse Practitioner Family; Visit Provider Registered Nurse Emergency | DX: M25.561 Pain in right knee (principal) | CPT/HCPCS: 73564 ==

== ENCOUNTER 2024-11-30 06:33 | Outpatient (REF) | payer MEDICARE, SELFPAY | END 2024-11-30 06:34 | disposition home or self-care (01) | LOC: CF 06:33 | PROVIDERS: Visit Provider Anesthesiology | DX: Z13.89 Encounter for screening for other disorder (principal) ==

== ENCOUNTER 2025-01-28 05:51 | Day surgery (SDC) | payer MEDICARE, SELFPAY ==
[2025-01-26 09:11] VITALS: BMI 35.0
--- NOTE | 2025-01-27 10:14 | P.CONAN_ITS ---
Documented by User: Erika May NP 01/27/25 11:50 HPI - Anesthesia Eval Consult details Narrative: 80yo M for Right Genicular Nerve Block Diagnostic s/p Medial branch RF AB 08/2024 with TIVA Plavix for carotid stenosis PMFSH Active Problems Active Problems: All Active Problems Right knee pain (Acute) Lumbar back sprain (Acute) Spinal stenosis of lumbar region (Acute) Lumbar spondylosis (Acute) Cellulitis (Acute) Lipoma of back (Acute) Abscess (Acute) Past Medical History Medical History (Updated 01/28/25 @ 06:32 by Silvina Acuna RN) Hypothyroidism AZUCENA (obstructive sleep apnea) Hypertension Chronic low back pain Chronic kidney disease Carotid artery stenosis Bipolar 1 disorder Arthritis of foot, degenerative Anxiety Allergic rhinitis Surgical History Surgical History (Updated 01/28/25 @ 06:32 by Silvina Acuna RN) H/O cystoscopy History of surgery Hx of laminectomy History of partial colectomy Hx of appendectomy History of tonsillectomy History of Problems with Anesthesia: No Social History Social History Are you a primary social worker palliative care to a significant other at home: No Do you presently have visiting nurse or other home services: No Alcohol intake: current Alcohol intake frequency: holidays/special occasions only Patient Tobacco Use Status: Former Tobacco user Tobacco use type: Cigarette Smoked in Last 30 Days: No Use of substances other than those prescribed or required for medical reasons: No Have you been hit, kicked, punched, or otherwise hurt by someone within the past year? If so, by whom?: No Are you DNR?: No Advance Directives: No Advance Directives Information Provided: No Advance Directives on File: No Poor oral hygiene: No Meds Allergies Allergy/AdvReac Type Severity Reaction Status Date / Time No Known Allergies Allergy Verified 01/28/25 06:27 Home Medications ?Medication ?Instructions ?Recorded ?Confirmed ?Last Taken ?Type clopidogrel 75 mg tablet 75 mg PO DAILY 09/27/20 01/28/25 01/22/25 History atorvastatin 20 mg tablet 20 mg PO DAILY 02/12/24 01/26/25 Unknown History quetiapine 100 mg tablet 100 mg PO BEDTIME 02/12/24 01/26/25 Unknown History carvedilol 6.25 mg tablet 6.25 mg PO BID 09/10/24 01/26/25 01/28/25 History levothyroxine 88 mcg tablet 88 mcg PO DAILY 09/10/24 01/26/25 Unknown History (Synthroid) amlodipine 2.5 mg tablet 2.5 mg PO DAILY 01/26/25 01/26/25 01/28/25 History Exam Height,Weight and Vital Signs: Height 5 ft 8 in Weight 104.326 kg Assessment and Plan Final Anesthetic Review History of Problems with Anesthesia: No Documented by User: Foster Umana MD 01/28/25 07:30 [facility] Past Medical History Medical History (Updated 01/28/25 @ 06:32 by Silvina Acuna RN) Hypothyroidism AZUCENA (obstructive sleep apnea) Hypertension Chronic low back pain Chronic kidney disease Carotid artery stenosis Bipolar 1 disorder Arthritis of foot, degenerative Anxiety Allergic rhinitis Family History Family history of problems with anesthesia: No Surgical History Surgical History (Updated 01/28/25 @ 06:32 by Silvina Acuna, RN) H/O cystoscopy History of surgery Hx of laminectomy History of partial colectomy Hx of appendectomy History of tonsillectomy Social History Social History Are you a primary social worker palliative care to a significant other at home: No Do you presently have visiting nurse or other home services: No Alcohol intake: current Alcohol intake frequency: holidays/special occasions only Patient Tobacco Use Status: Former Tobacco user Tobacco use type: Cigarette Smoked in Last 30 Days: No Use of substances other than those prescribed or required for medical reasons: No Have you been hit, kicked, punched, or otherwise hurt by someone within the past year? If so, by whom?: No Are you DNR?: No Advance Directives: No Advance Directives Information Provided: No Advance Directives on File: No Poor oral hygiene: No Meds Allergies Allergy/AdvReac Type Severity Reaction Status Date / Time No Known Allergies Allergy Verified 01/28/25 06:27 Home Medications ?Medication ?Instructions ?Recorded ?Confirmed ?Last Taken ?Type clopidogrel 75 mg tablet 75 mg PO DAILY 09/27/20 01/28/25 01/22/25 History atorvastatin 20 mg tablet 20 mg PO DAILY 02/12/24 01/26/25 Unknown History quetiapine 100 mg tablet 100 mg PO BEDTIME 02/12/24 01/26/25 Unknown History carvedilol 6.25 mg tablet 6.25 mg PO BID 09/10/24 01/26/25 01/28/25 History levothyroxine 88 mcg tablet 88 mcg PO DAILY 09/10/24 01/26/25 Unknown History (Synthroid) amlodipine 2.5 mg tablet 2.5 mg PO DAILY 01/26/25 01/26/25 01/28/25 History Exam Airway Mallampati Class: II TM Dist: <=3cm Neck ROM: Full Loose/Missing/Broken Teeth: No Heart: ok Lungs: ok Assessment and Plan Assessment Anesthesia Assessment: Anesthesia Plan Discussed and Chart Reviewed Final Anesthetic Review Family History of Problems with Anesthesia: No NPO: Yes ASA Class: III Final Preanesthetic Review: No Changes in Pt Med Stat, Meds/Allgs Chart Reviewed, Consent Obtained/Reviewed and Anes Risks/Benef Reviewed Patient Risk: Intermediate Procedure Risk: Low Anesthetic Plan Anesthetic Plan: MAC: and Agree w/ Assess. and Plan Disposition: Standard PACU
--- NOTE | ~2025-01-28 | FL_ITS ---
EXAMINATION: FL GUIDANCE ONLY HISTORY: genicular nerve block diagnostic, Right COMPARISON: Correlation is made with plain films of the right knee dated 09/13/2024. TECHNIQUE: Fluoroscopy time: 13.3 seconds. Cumulative Dose: 3.2556 mGy. DAP: 0.8875 mGym2 Images: 2. FINDINGS: Images demonstrate multiple needles in place about the knee. A prosthesis is seen in place. FL/FL guidance in OR IMPRESSION: Fluoroscopy during procedure. Please see procedure report for additional information. Electronically signed by: Shelton Gordillo MD 01/28/2025 03:06 PM EDT
[2025-01-28 06:33] VITALS: BP 165/83; PULSE 74; RESP 16; TEMP 36.5; O2SAT 97; BMI 34.8
[2025-01-28] MEDS: Lactated Ringers 1,000 ML 100 ML IVCONT (06:47)
--- NOTE | 2025-01-28 07:19 | MHC.SHP ---
Pre-Procedural Eval Section A - 24 Hr Update-Section A only Date of Service: 01/28/25 The patient is an INPATIENT: No Changes since office visit: Yes Patient answered all questions The patient has been examined within 24 hours of the surgical procedure. The History & Physical has been completed within 30 days and I have reviewed it.: No Section B - Complete if H&P > 30 days Chief Complaint: Pain in right knee Details of Present Illness: as above Relevant Family History (Specify if Yes): No Relevant Social History: None Present Medications: see Short Stay Collaborative assessment Medical History: No relevant PMH History of Previous Operations: Relevant previous surgery/procedure and date(s) (total knee replacement) Allergies: Allergies Allergy/AdvReac Type Severity Reaction Status Date / Time No Known Allergies Allergy Verified 01/28/25 06:27 Review of Systems Sugical H&P ROS: Negative: Respiratory, Neurological, Psychiatric, Hem-Onc, Allergic/Immunologic, Gastrointestinal, Genitourinary, Musculoskeletal, Integumentary and Eyes/Ears/Nose/Throat and Yes, Specify: Constitution (morbid obesity), Cardiovascular (HTN) and Endocrine (hypothyroidism) Exam Surgical H&P Exam: Normal: HEENT, Normal: Heart, Normal: Lungs, Normal: Abdomen, Normal: Skin and Normal: Neurological and Significant Findings: Extremities (scar on anterior surface RLE) Plan Diagnosis/Plan: Unchanged I have reviewed the history and physical and performed a pertinent physical examination on my patient. No changes have occurred unless specified.I am going to perform right genicular nerves block. Time Spent With Patient Time: Total time managing care of this patient today ___5_ minutes.
--- NOTE | 2025-01-28 07:31 | PC.NURSE ---
Patient in preop. Last took PO Plavix 6 days ago (was told to hold for 7 days) as well as yesterday took his daily supplement to help increase blood flow . Dr. Cooper made aware. Discussed risks of bleeding with patient. Patient agrees to proceed. OR nurse Dahl made aware.
--- NOTE | 2025-01-28 07:57 | P.BOP_ITS ---
Brief Operative Note Date of Service: 01/28/25 Pre-op diagnosis: Right knee pain, status post total knee replacement right Post-op diagnosis: same Procedure: Genicular nerve block right Implants: None Surgeon: Jimmy Cooper MD Anesthesia: MAC Was an Life Skills Consultant used for this Procedure?: No Estimated blood loss (mL): 0 Condition: stable Disposition: PACU
--- NOTE | 2025-01-28 07:58 | W.PM.OPN ---
Operative Note Operative Note Date of Service: 01/28/25 Narrative: Right genicular nerve block diagnostic. Informed consent was thoroughly explained to the patient. Risks and benefits were explained. Patient asked multiple questions. All of them were answered to his satisfaction. Patient was taken to the operating room and positioned supine on the operating table. ASA monitors were applied. Patient was moderately sedated. His right knee was elevated on gel roll Time-out was performed. Date of and name of the patient's were stated. Need for DVT prophylaxis, need for antibiotics, which is non, patient's allergies were stated. Anterior lateral and medial surfaces of the right knee as well as adjacent hip and lower leg were prepped with ChloraPrep and draped with sterile self adhesive utility towels. C-arm was brought over the operating field and sq picture of the right knee was obtained on the screen. The TKR hardware was noted, the point of interest were chosen as confluence of the diaphysis of the femur medially and laterally with metaphysis of this bone, as well as confluence of diaphysis of the tibia with metaphysis of the tibia on the medial side. The projection of the point of interest to the skin was injected with mixture of lidocaine 2% and ropivacaine 0.5% one-to-one. After that 3 22 gauge 3-1/2 inch needles were inserted through the skin and advanced to point of interest under intermittent anterior posterior and lateral x-ray views. When needles gently contacted the bones the position of the tips of the needles was verified on lateral view of the right knee with condyles superimposed. The image of the tip of the needle on the lateral positioned was obscured by image of the hardware. The injection of the 1 cc of ropivacaine 0.5% was performed into each needle positioned. The patient tolerated the procedure fairly well. The needles were withdrawn and sterile Band-Aids were applied. No significant bleeding was noted from the sites of the needle sticks. Patient was transferred to PACU for the recovery and recovered uneventfully.
[2025-01-28 08:01] VITALS: BP 142/77; PULSE 72; RESP 15; TEMP 36.2; O2SAT 96
[2025-01-28 08:19] VITALS: BP 163/85; PULSE 70; RESP 18; TEMP 36.1; O2SAT 97
== END 2025-01-28 09:14 | disposition home or self-care (01) ==
PROVIDERS: PCP Nurse Practitioner Family; Visit Provider Anesthesiology
PROC: (CPT 64454; principal; 2025-01-28 07:30)
DX: M25.561 Pain in right knee (principal); G89.29 Other chronic pain; Z96.651 Presence of right artificial knee joint; M54.50 Low back pain, unspecified; M47.816 Spondylosis without myelopathy or radiculopathy, lumbar region; M48.061 Spinal stenosis, lumbar region without neurogenic claudication; I12.9 Hypertensive chronic kidney disease with stage 1 through stage 4 chronic kidney disease, or unspecified chronic kidney disease; N18.9 Chronic kidney disease, unspecified; G47.33 Obstructive sleep apnea (adult) (pediatric); Z79.01 Long term (current) use of anticoagulants; Z98.890 Other specified postprocedural states; Z87.891 Personal history of nicotine dependence
CPT/HCPCS: 64454; J2003; J2704; J2795; J3010

== ENCOUNTER → 2025-01-28 05:51 | Outpatient (BNV) | payer MEDICARE, SELFPAY | PROVIDERS: PCP Nurse Practitioner Family; Visit Provider Anesthesiology | DX: M25.561 Pain in right knee (principal); Z96.651 Presence of right artificial knee joint | CPT/HCPCS: 64454 ==

== ENCOUNTER 2025-02-02 09:25 | Outpatient (AMB) | payer MEDICARE, SELFPAY ==
--- NOTE | 2025-02-02 09:48 | A.OFFVIS_ITS ---
Vital Signs 3 02/02/25 09:49 02/02/25 09:57 Height 5 ft 8 in Weight 228 lb BMI 34.7 BP 182/84 H 148/80 H Blood Pressure Location Lt brachial Rt brachial Position Sitting Sitting Pulse 101 H Pulse Source Pulse Oximeter Pulse Oximetry (%) 98 Oxygen Delivery Method Room Air Intake Visit Reasons: S/p (R) Dx Genicular Nerve Block 01/28/25 Intake Note: Retook BP manually right arm Inorganic Chemistry Teacher Required: No Allergies No Known Allergies Allergy (Verified 02/02/25 09:50) Medication List - Last Reconciled 02/02/25 by Payton Rosas, BRANCH SERVICE SPECIALIST amlodipine 2.5 mg PO DAILY atorvastatin 20 mg PO DAILY carvedilol 6.25 mg PO BID clopidogrel 75 mg PO DAILY levothyroxine (Synthroid) 88 mcg PO DAILY quetiapine 100 mg PO BEDTIME HPI Comments Details: The patient is an 80-year-old male presenting to the office for follow up, 5 days s/p right diagnostic genicular nerve block. Pain in the right knee has remained 0/10 since the procedure. Patient also complaining of right lower back pain that developed subsequent to a gym-related lumbar strain. He acknowledged as being caused by excessive stretching. Despite regular therapy, both acupuncture and physical therapy have yielded insufficient improvement in the patient's discomfort, which remains localized at the right lumbar region, with no distal radiation. Activities, particularly those involving movement or posture changes, exacerbate the pain. Previous interventions, such as baclofen, were ineffective, while lidocaine provided only transient relief. The patient manages his hypertension with carvedilol but experiences an initially elevated blood pressure. - Onset: After gym activity; severe strain during stretching. - Quality: Persistent discomfort. - Location: Lumbar region, with localized tenderness. - Exacerbating Factors: Movement, transitioning from sitting to standing. - Relieving Factors: Short-term relief from lidocaine application. - Functional Impact: Limited mobility due to pain during or after certain movements. - Affect: Pain has a negative impact on the patient's daily routines and movements. - Analgesia: Medication previously used includes baclofen and lidocaine, both of which were inadequate. - Adverse Effects: No reported side effects from current medication. - Activities of Daily Living: Movement and transition challenges, with goals to reduce pain to enhance mobility. - Aberrant Drug-Related Behaviors: None reported or suspected. [facility] Medical History (Updated 02/02/25 @ 11:14 by Johana Fraser APRN, ELEMENTARY SCHOOL SCIENCE TEACHER) Hypothyroidism AZUCENA (obstructive sleep apnea) Hypertension Chronic low back pain Chronic kidney disease Carotid artery stenosis Bipolar 1 disorder Arthritis of foot, degenerative Anxiety Allergic rhinitis Surgical History (Updated 02/02/25 @ 11:09 by Johana Fraser APRN, ELEMENTARY SCHOOL SCIENCE TEACHER) H/O cystoscopy History of surgery Hx of laminectomy History of partial colectomy Hx of appendectomy History of tonsillectomy Social History Are you a primary day care attendant to a significant other at home: No Do you presently have visiting nurse or other home services: No Alcohol intake: current Alcohol intake frequency: holidays/special occasions only Patient Tobacco Use Status: Former Tobacco user Tobacco use type: Cigarette Review of Systems Const Details: - Musculoskeletal: Reports persistent lumbar pain with activity-related exacerbation. - Neurologic: Denies radiation of pain down the legs. Physical Exam Vital Signs: Last Vital Signs Pulse 101 H 02/02/25 09:49 BP 148/80 H 02/02/25 09:57 Pulse Ox 98 02/02/25 09:49 Oxygen Delivery Method Room Air 02/02/25 09:49 BMI result Body Mass Index 34.7 General: awake, alert, oriented. Answers questions appropriately. Fully engaged in examination. Skin: warm, dry, intact HEENT: Normocephalic. Hearing intact. Cardiac: External chest normal in appearance. Respiratory: No cough, audible wheezing or stridor. Abdomen: without gross distension. MS: No obvious swelling or deformities. Able to transition from sit to stand unassisted. Tenderness to palpation right lumbar musculature Nontender over midline lumbar vertebrae and lumbar paraspinal muscles Neurological: Oriented to person, place, time and situation. Thought process intact. Ambulates with use of a cane Psychiatric: Appropriate mood and affect. Good judgment and insight. Results Reviewed Results Reviewed: 08/27/24 x-ray lumbar spine FINDINGS: Multilevel marginal osteophyte formation and syndesmophyte formation. Decreased intervertebral disc height at L5-S1 and L3-4 level. Levoconvex curvature. No acute cortical disruption or gross malalignment. No lytic or blastic lesions. Degenerative changes in the right coxofemoral joint. IMPRESSION: Multilevel thoracolumbar spondylosis without acute fracture. Osteoarthrosis, right hip. 11/02/2023 MRI LS Assessment & Plan Assessment & Plan (1) Lumbar spondylosis: Code(s): M47.816 - Spondylosis without myelopathy or radiculopathy, lumbar region Category: Medical (2) Spinal stenosis of lumbar region: Code(s): M48.061 - Spinal stenosis, lumbar region without neurogenic claudication Category: Medical (3) Lumbar back sprain: Code(s): S33.5XXA - Sprain of ligaments of lumbar spine, initial encounter Category: Medical (4) History of total right knee replacement: Code(s): Z96.651 - Presence of right artificial knee joint Category: Medical (5) Right knee pain: Code(s): M25.561 - Pain in right knee Category: Medical (6) Myofascial low back pain: Code(s): M54.50 - Low back pain, unspecified Category: Medical Plan Trigger point injections will be initiated to target the specific area of muscular discomfort identified in the right lumbar region. Patient takes Plavix for history of TIA, he was instructed to take this tomorrow then hold until injection appt next Friday02/09/2025. A new prescription for methocarbamol will be attempted, considering previous inadequate responses to baclofen. Pending insurance approval, a right genicular radiofrequency ablation procedure with sedation will be scheduled to provide more enduring relief. I discussed with the patient the likely need for trigger point injections to improve his lumbar muscular pain, explaining how this might provide relief localized to the strained area. The patient understood and agreed to this approach. We reviewed the inadequate response to baclofen and proposed a trial of methocarbamol. I emphasized the necessity of insurance approval prior to scheduling an RFA procedure, to provide procedural sedation and ensure a more comfortable experience. All procedural risks and benefits were outlined, and the patient expressed understanding and agreement to the proposed plans. Patient was informed and verbally consented to the use of an ambient scribe for clinic note documentation during this visit. Medications: New 2 methocarbamol Discontinue use of Baclofen No driving while taking this medication. Do no take with alcohol or other COMMUNICATIONS ADVISOR Depressants 500 mg PO TID PRN 90 tabs 1RF muscle spasm Patient Instructions: - Expect a call to schedule trigger point injections for back pain. - Start the new medication methocarbamol as prescribed. - Continue current physical therapy and acupuncture sessions. - Monitor blood pressure regularly and continue carvedilol as instructed. - Await notification regarding the scheduling of the radiofrequency ablation. - Engage in gentle movements and avoid actions that exacerbate the pain. Coding Level of Care Code Est Pt Level 3 (34990) Complex EM visit Add On G2211 Diagnoses Lumbar spondylosis M47.816 Spinal stenosis of lumbar region M48.061 Lumbar back sprain S33.5XXA History of total right knee replacement Z96.651 Right knee pain M25.561 Myofascial low back pain M54.50
[2025-02-02 09:49] VITALS: BP 182/84; PULSE 101; O2SAT 98; BMI 34.7
[2025-02-02 09:57] VITALS: BP 148/80
--- OUTSIDE RECORDS SUMMARY | 2025-02-02 10:07 | XMS_ITS | Clinical Summary ---
Author Organization [facility] Address [address] [place] [address] Care Team Providers Care Roto Rooter Operator Name Role Phone Anna Spencer Primary Care Provider [phone] Allergies Active Allergy Reactions Criticality Noted Date Comments Animal Dander Unknown 03/05/2023 House Dust Unknown 03/05/2023 Medications atorvastatin (LIPITOR) 20 mg tablet SMARTSI Tablet(s) By Mouth Daily 12/09/2022 Active azelastine (ASTELIN) 137 mcg (0.1 %) nasal spray SMARTSI [place](s) Both Nares Twice Daily PRN 01/22/2023 Active carvediloL (COREG) 3.125 mg tablet SMARTSI Tablet(s) By Mouth Twice Daily 01/13/2023 Active clopidogreL (PLAVIX) 75 mg tablet SMARTSI Tablet(s) By Mouth Daily 02/27/2023 Active finasteride (PROSCAR) 5 mg tablet SMARTSI Tablet(s) By Mouth Daily 02/20/2023 Active gabapentin (NEURONTIN) 300 mg capsule SMARTSI Capsule(s) By Mouth Twice Daily 03/02/2023 Active Synthroid 88 mcg tablet SMARTSI Tablet(s) By Mouth Daily 01/13/2023 Active Myrbetriq 50 mg tablet SMARTSI Tablet(s) By Mouth Daily 02/09/2023 Active QUEtiapine (SEROquel) 50 mg tablet SMARTSI Tablet(s) By Mouth Daily 11/23/2022 Active tamsulosin (FLOMAX) 0.4 mg capsule SMARTSI Capsule(s) By Mouth Daily 2023 Active cholecalciferol (VITAMIN D3) 2,000 unit capsule Take 1 capsule by mouth once a day. Active fexofenadine (THEE) 180 mg tablet Take 180 mg by mouth once a day. Active multivitamin capsule Take 1 capsule by mouth once a day. Active Family History Relation Name Status Comments Father Mother Social History Tobacco Use Types Packs/Day Years Used Date Smoking Tobacco: Never Smokeless Tobacco: Former Tobacco Cessation:Counseling Given: Not Answered Alcohol Use Standard Drinks/Week Comments Yes 1 (1 standard drink = 0.6 oz pur e alcohol) Sex and Gender Information Value Date Recorded Sex Assigned at Not on file Legal Sex Male 9:30 AM EDT Gender Identity Not on file Sexual Orientation Not on file Last Filed Vital Signs Vital Sign Reading Time Taken Comments Blood Pressure - - Pulse - - Temperature - - Respiratory Rate - - Oxygen Saturation - - Inhaled Oxygen Concentration - - Weight 104.3 kg (230 lb) 03/05/2023 9:45 AM EDT Height 172.7 cm (5' 8 ) 03/05/2023 9:45 AM EDT Body Mass Index 34.97 03/05/2023 9:45 AM EDT Plan of Treatment Health Maintenance Due Date Last Done Comments Medicare AWV 01/22/1946 DTaP,Tdap,and Td Vaccines (1 - Tdap) 12/23/2002 12/22/2002 Zoster Vaccines (2 of 3) 03/29/2009 02/01/2009 RSV Vaccine (60+ years old and patients) (1 - 1-dose 75+ series) 01/22/2019 Pneumococcal Vaccine: 50+ Years (3 of 3 - PCV20 or PCV21) 01/05/2020 01/04/2015, 12/22/2008, 06/21/2007 COVID-19 Vaccine ( - season) 2024 07/23/2021, 12/08/2020, 11/17/2020 Alcohol/Substance Use Screening 10/06/2024 Depression Screening and Follow-Up 10/06/2024 Health Care Proxy Review 10/06/2024 Social Drivers of Health Annual Screening 10/06/2024 Influenza Vaccine (Season Ended) 2025 06/14/2022, 06/14/2022, 06/10/2021, Additional history exists Hepatitis B Vaccines Aged Out No long er eligible based on patient's age to complete this topic Insurance [facility] MEDICARE Care Teams Roto Rooter Operator Relationship Specialty Start Date End Date Anna Spencer [address] [place] [id number] PCP - General 01/23/23
--- OUTSIDE RECORDS SUMMARY | 2025-02-02 10:07 | XMS_ITS | Referral Summary ---
Author Organization [facility] Address [address] [place] [address] Care Team Providers Care Certified Peer Specialist Name Role Phone Anna Spencer Primary Care Provider [phone] Allergies Active Allergy Reactions Criticality Noted Date Comments Animal Dander Unknown 03/05/2023 House Dust Unknown 03/05/2023 Medications atorvastatin (LIPITOR) 20 mg tablet SMARTSI Tablet(s) By Mouth Daily 12/09/2022 Active azelastine (ASTELIN) 137 mcg (0.1 %) nasal spray SMARTSI [place](s) Both Nares Twice Daily PRN 01/22/2023 Active [...] capsule by mouth once a day. Active Social History Tobacco Use Types Packs/Day Years [...] 03/05/2023 9:45 AM EDT Plan of Treatment Not on file Insurance [facility] MEDICARE Care Teams Certified Peer Specialist Relationship Specialty Start Date End Date Anna Spencer [address] [place] [id number] PCP - General 01/23/23
== END 2025-02-02 10:00 | disposition home or self-care (01) ==
LOC: HO.PMC 09:26
PROVIDERS: PCP Nurse Practitioner Family; Visit Provider Registered Nurse Emergency
DX: M47.816 Spondylosis without myelopathy or radiculopathy, lumbar region (principal); M48.061 Spinal stenosis, lumbar region without neurogenic claudication; S33.5XXA Sprain of ligaments of lumbar spine, initial encounter; Z96.651 Presence of right artificial knee joint; M25.561 Pain in right knee; M54.50 Low back pain, unspecified
CPT/HCPCS: 99213; G2211

== ENCOUNTER → 2025-02-02 09:25 | Outpatient (BNVA) | payer MEDICARE, SELFPAY | PROVIDERS: PCP Nurse Practitioner Family; Visit Provider Registered Nurse Emergency | DX: M48.061 Spinal stenosis, lumbar region without neurogenic claudication (principal); M25.561 Pain in right knee; M54.50 Low back pain, unspecified; Z96.651 Presence of right artificial knee joint; S33.5XXD Sprain of ligaments of lumbar spine, subsequent encounter; Z79.01 Long term (current) use of anticoagulants | CPT/HCPCS: 99212 ==

== ENCOUNTER 2025-03-09 10:57 | Outpatient (AMB) | payer MEDICARE, SELFPAY ==
[2025-03-09 11:36] VITALS: BP 185/86; PULSE 76; O2SAT 97
--- NOTE | 2025-03-09 11:36 | A.OFFVIS_ITS ---
Vital Signs 03/09/25 11:36 Weight 240 lb BP 185/86 H Blood Pressure Location Lt brachial Position Sitting Pulse 76 Pulse Source Pulse Oximeter Pulse Oximetry (%) 97 Oxygen Delivery Method Room Air Intake Visit Reasons: Trigger point inj rt lumbar Chair Inspector Required: No Allergies No Known Allergies Allergy (Verified 03/09/25 11:37) PFSH Medical History (Updated 02/02/25 @ 11:14 by Johana Fraser APRN, PLATING FOREMAN) Hypothyroidism AZUCENA (obstructive sleep apnea) Hypertension Chronic low back pain Chronic kidney disease Carotid artery stenosis Bipolar 1 disorder Arthritis of foot, degenerative Anxiety Allergic rhinitis Surgical History (Updated 02/02/25 @ 11:09 by Johana Fraser APRN, PLATING FOREMAN) H/O cystoscopy History of surgery Hx of laminectomy History of partial colectomy Hx of appendectomy History of tonsillectomy Social History Are you a primary healthcare administrator to a significant other at home: No Do you presently have visiting nurse or other home services: No Alcohol intake: current Alcohol intake frequency: holidays/special occasions only Patient Tobacco Use Status: Former Tobacco user Tobacco use type: Cigarette Physical Exam Vital Signs: Last Vital Signs Pulse 76 03/09/25 11:36 BP 185/86 H 03/09/25 11:36 Pulse Ox 97 03/09/25 11:36 Oxygen Delivery Method Room Air 03/09/25 11:36 Office Procedures Therapeutic Injection Therapeutic Injection 80799-Ipbzpna Point Injection 1 or 2 sites All charges added?: Procedure code (CPT) selection complete Office Meds triamcinolone acetonide 40 mg/mL suspension for injection Performing Provider: Jimmy Cooper MD Performing Location: [facility] Administered by: Jimmy Cooper MD on 03/09/25 12:38 Dose Route Admin Location Dispensed Lot Number Expiration Date [facility] [employer] Worker 40 mg Infiltration 1 mL [id number] 09/04/26 HIKMA [place], bupivacaine (PF) 0.25 % (2.5 mg/mL) injection solution Performing Provider: Jimmy Cooper MD Performing Location: [facility] Administered by: Jimmy Cooper MD on 03/09/25 12:38 Dose Route Admin Location Dispensed Lot Number Expiration Date [facility] [employer] Worker 10 mL Infiltration 10 mL [id number] 08/06/25 HOSPIRA Comments: The patient was positioned prone on the examination table after obtaining informed consent and risks and benefits explanation. The lower back of the patient was prepped with ChloraPrep sterilely obtained solutions as above were injected in the most upper portion of the bilateral gluteus arianna muscles. The patient tolerated the procedure well. The needles were removed and sterile Band-Aid was applied. Assessment & Plan Assessment & Plan (1) Myofascial low back pain: Code(s): M54.50 - Low back pain, unspecified Category: Medical Plan Trigger point injection is as above. Patient tolerated procedure well. Orders: Orders AMB Trigger Point Injection Today M54.50 - Low back pain, unspecified Medications: New triamcinolone acetonide 40 mg Infiltration ONCE 1 mL 0RF M54.50 - Low back pain, unspecified bupivacaine (PF) 10 mL Infiltration ONCE 10 mL 0RF M54.50 - Low back pain, unspecified Coding Level of Care Code Procedure Only Diagnoses Myofascial low back pain M54.50 CPT Codes Therapeutic Injection - Ther Injection 1: 96942-Binypmg Point Injection 1 or 2 sites ([id number])
--- OUTSIDE RECORDS SUMMARY | 2025-03-09 12:06 | XMS_ITS | Patient Health Record ---
Author Organization [facility] Address [address] [place] [address] Care Team Providers Care Plate Molder Name Role Phone Franc Prince MD Primary Care Provider Unavailab Jovanny James Unavailable [phone] Reason For Referral No Information Medications Medication SIG (Take, Route, Frequency, Duration) Notes Start Date End Date Status CeleBREX Not-Taking traMADol HCl Active Glucosamine Sulfate Active Finasteride Active Ipratropium Spray Active Simvastatin 40 mg Ac tive Aggrenox 25/200 Acti ve Synthroid 88 MCG Orally Act nikko OXcarbazepine 600 mg Not-Taking Benicar 20 mg Not-Ta chad Abilify 10 mg Not-Ta chad Trileptal Not-Taking Problems Problem Type SNOMED Code ICD Code Onset Dates Problem Status W/U Status Risk Notes Problem Bursitis (92835629) Bursitis (727.3) Active confirmed Problem Achilles bursitis (959236348) Achilles Tendonitis Bursitis (726.71) Active confirmed Problem Arthralgia (20564204) Arthralgia (719.40) Active confirmed Problem Disorder of joint of ankle and/or foot (611661956) Arthritis - Degenerative (719.97) Active confirmed Problem Bursitis (70199254) Bursitis (727.3) Active confirmed Problem Calcaneal spur (67636544) Calcaneal spur (726.73) Active confirmed Problem Acquired deformity of joint of big toe (disorder) (710936780) Hallux Limitus (735.8) Active confirmed Problem Hallux valgus (565227349) Hallux Valgus (735.0) Active confirmed Problem Hammer toe (020189144) Hammer toe (735.4) Active confirmed Problem Myositis (31318776) Myositis (729.1) Active confirmed Problem Pain in limb (95342462) Pain in Limb (729.5) Active confirmed Problem Plantar fasciitis (155555985) Plantar Fasciitis (728.71) Active confirmed Problem Verruca plantaris (97554144) Verruca Plantaris (078.19) Active confirmed Plan Of Treatment Pending Test Test Name Order Date X ray : Foot, left 3V 03/23/2012 X ray : Foot, right 3V 06/01/2012 70759-Xwlc Destruction, -08/21/2012 30027-Fbcy Destruction, -03/23/2012 63535-Hpko Destruction, -12/04/2012 48042, [id number]-VECMI/INJECT, JOINT/BURSA 0 06/24/2014 67762, [id number]/INJECT, JOINT/BURSA 1 70403, [id number]/INJECT, JOINT/BURSA 1 10/26/2013 58735, [id number]/INJECT, JOINT/BURSA 0 10/14/2014 45183, [id number]-SEBMN/INJECT, JOINT/BURSA 0 11/15/2014 85467,[id number]-TBP TENDON SHEATH/LIGAMENT 1 07034,[id number] TENDON SHEATH/LIGAMENT 1 10/11/2011 04737,[id number]-NNT TENDON SHEATH/LIGAMENT 1 11/09/2011 Insurance Providers Payer Name Payer Address Payer Phone Subscriber Number Group Number Insured Name Patient Relationship to Insured Coverage Start Date Coverage End Date [facility] [address] [facility] [place] [id number] Agustín Law Self - patient is the insured Medical (General) History Medical History History ICD Code stroke thyroid disorder measles high blood pressure prostate conditions cholesterol kidney problems Surgical History Surgery Date(Month/Year) foot surgery
== END 2025-03-09 11:57 | disposition home or self-care (01) ==
LOC: HO.PMC 11:12
PROVIDERS: PCP Nurse Practitioner Family; Visit Provider Anesthesiology
DX: M79.18 Myalgia, other site (principal)
CPT/HCPCS: 20552

== ENCOUNTER → 2025-03-09 10:57 | Outpatient (BNVA) | payer MEDICARE, SELFPAY | PROVIDERS: PCP Nurse Practitioner Family; Visit Provider Anesthesiology | DX: M79.18 Myalgia, other site (principal) | CPT/HCPCS: 20552; J0665; J3300 ==

== ENCOUNTER 2025-05-20 09:34 | Outpatient (AMB) | payer MEDICARE, SELFPAY ==
--- OUTSIDE RECORDS SUMMARY | 2025-05-20 09:42 | XMS_ITS | Clinical Summary ---
Author Organization [facility] Address [address] [place] [address] Care Team Providers Care Mutual Fund Accountant Name Role Phone Anna Spencer Primary Care Provider [phone] Allergies Active Allergy Reactions Criticality Noted Date Comments Animal Dander Unknown 03/05/2023 House Dust Unknown 03/05/2023 Medications atorvastatin (LIPITOR) 20 mg tablet SMARTSI Tablet(s) By Mouth Daily 12/09/2022 Active azelastine (ASTELIN) 137 mcg (0.1 %) nasal spray SMARTSI [place](s) Both Nares Twice Daily PRN 01/22/2023 Active [...] of Health Annual Screening 10/06/2024 Influenza Vaccine (#1) 2025 2, 06/14/2022, 06/10/2021, Additional history exists Hepatitis B Vaccines Aged Out No long er eligible based on patient's age to complete this topic Insurance [facility] MEDICARE Care Teams Mutual Fund Accountant Relationship Specialty Start Date End Date Anna Spencer [address] [place] [id number] PCP - General 01/23/23
--- OUTSIDE RECORDS SUMMARY | 2025-05-20 09:42 | XMS_ITS | Patient Health Record ---
[facility] Address [address] [place] [address] Care Team Providers Care Asp Web Developer Name Role Phone Franc Prince MD Primary Care Provider Unavailab Jovanny James Unavailable [phone] Reason For Referral No Information Medications Medication SIG (Take, Route, Frequency, Duration) Notes Start Date End Date Status CeleBREX Not-Taking traMADol HCl Active Glucosamine Sulfate Active Finasteride Active Ipratropium [place] Active Simvastatin 40 mg Ac tive Aggrenox 25/200 Acti ve Synthroid 88 MCG Orally Act nikko OXcarbazepine 600 mg Not-Taking Benicar 20 mg Not-Ta chad Abilify 10 mg Not-Ta chad Trileptal Not-Taking Problems Problem Type SNOMED Code ICD Code Onset Dates Problem Status W/U Status Risk Notes Problem Information temporarily unavailable Bursitis (727.3) Active confirmed Problem Information temporarily unavailable Achilles Tendonitis Bursitis (726.71) Active confirmed Problem Information temporarily unavailable Arthralgia (719.40) Active confirmed Problem Information temporarily unavailable Arthritis - Degenerative (719.97) Active confirmed Problem Information temporarily unavailable Bursitis (727.3) Active confirmed Problem Information temporarily unavailable Calcaneal spur (726.73) Active confirmed Problem Information temporarily unavailable Hallux Limitus (735.8) Active confirmed Problem Information temporarily unavailable Hallux Valgus (735.0) Active confirmed Problem Information temporarily unavailable Hammer toe (735.4) Active confirmed Problem Information temporarily unavailable Myositis (729.1) Active confirmed Problem Information temporarily unavailable Pain in Limb (729.5) Active confirmed Problem Information temporarily unavailable Plantar Fasciitis (728.71) Active confirmed Problem Information temporarily unavailable Verruca Plantaris (078.19) Active confirmed Plan Of Treatment Pending Test Test Name Order Date X ray : Foot, left 3V 03/23/2012 X ray : Foot, right 3V 06/01/2012 54511-Okfi Destruction, -14 03/23/2012 97402-Rvnu Destruction, -14 12/04/2012 31710-Rrgu Destruction, 1-14 08/21/2012 01235, [id number]/INJECT, JOINT/BURSA 0 06/24/201430144, [id number]/INJECT, JOINT/BURSA 1 00, [id number]/INJECT, JOINT/BURSA 1 10/26/201385223, [id number]/INJECT, JOINT/BURSA 0 10/14/201483086, [id number]-QONVS/INJECT, JOINT/BURSA 0 11/15/201488051,[id number] TENDON SHEATH/LIGAMENT 1 39982,[id number] TENDON SHEATH/LIGAMENT 1 10/11/2011 10750,[id number]-LEB TENDON SHEATH/LIGAMENT 1 11/09/2011 Insurance Providers Payer Name Payer Address Payer Phone Subscriber Number Group Number Insured Name Patient Relationship to Insured Coverage Start Date Coverage End Date [facility] [address] [facility] [place] [id number] [phone] [id number] Agustín Law Self - patient is the insured Medical (General) History Medical History History ICD Code stroke thyroid disorder measles high blood pressure prostate conditions cholesterol kidney problems Surgical History Surgery Date(Month/Year) foot surgery
--- OUTSIDE RECORDS SUMMARY | 2025-05-20 09:42 | XMS_ITS | Clinical Summary ---
Author Organization [facility] Address [address] [place] [id number] Phone Care Team Providers Care Adult Day Care Worker Name Role Phone Franc Prince MD Primary Care Provider [phone] Social History Tobacco Use Types Packs/Day Years Used Date Smoking Tobacco: Never Assessed Sex and Gender Information Value Date Recorded Sex Assigned at Not on file Legal Sex Male 9:08 AM EST Gender Identity Not on file Sexual Orientation Not on file Plan of Treatment Not on file Medical Devices Not [place] [id number] MEDICARE PART A & B [place] MEDEX SUPPLEMENT MEDICARE PART A & B Member Subscriber Plan / Payer (Ef fective 2013-Present) Name:Agustín Law Member ID:[id number] Relation to Subscriber:Self Name:Agustín Law Subscriber ID:[id number] Payer ID:[id number] Group ID:Not on file Type:Medicare Address: [employer] [address] [place], [place] [id number] [place] [address] MEDEX SUPPLEMENT MEDICARE PART A & B [employer] [place] MEDEX SUPPLEMENT MEDICARE PART A & B [place] MEDEX SUPPLEMENT MEDICARE PART A & B [place] MEDEX SUPPLEMENT MEDICARE PART A & B [employer] [place] MEDEX SUPPLEMENT MEDICARE PART A & B [employer] MEDEX SUPPLEMENT MEDICARE PART A & B [employer] [place] MEDEX SUPPLEMENT MEDICARE PART A & B [employer] [place] MEDEX SUPPLEMENT Care Teams Adult Day Care Worker Relationship Specialty Start Date End Date Franc Prince MD PCP - General Internal Medicine 12/04/15 Additional Source Comments The information contained in this document represents components of the legal health record. It is not the complete legal health record.[facility]
[2025-05-20 09:43] VITALS: BP 157/76; PULSE 75; RESP 16; O2SAT 95; BMI 35.1
--- NOTE | 2025-05-20 09:43 | A.OFFVIS_ITS ---
Vital Signs 3 05/20/25 09:43 Height 5 ft 8 in Weight 231 lb BMI 35.1 BP 157/76 H Blood Pressure Location Rt brachial Position Sitting Respiration 16 Pulse 75 Pulse Source Pulse Oximeter Pulse Oximetry (%) 95 Oxygen Delivery Method Room Air Intake Visit Reasons: Back Pain s/p (R) Lumbar Trigger Point Injection Software Engineer Web Services Required: No Accompanied by: Self / Same As Patient Allergies No Known Allergies Allergy (Verified 05/20/25 09:58) HPI Comments Details: The patient is an 80-year-old male presenting with chronic pain in the right lumbar region. The pain initially improved following an ablation procedure that was completed 10 months ago, providing complete relief for one month before returning to its previous intensity. The patient reports that the pain is exacerbated by movement, particularly when transitioning from sitting to standing, and is localized predominantly on the right side with some involvement on the left. Interventions have included physical therapy, acupuncture, and trigger point injections, which provided temporary relief. The patient has been using a heating pad and engaging in regular exercise at the gym, which he believes helps manage the pain to some extent. The patient has a history of hypertension, managed with carvedilol and amlodipine, and reports blood pressure readings ranging from 130 to 177 mmHg. He also has a history of heart disease and insomnia, for which he takes quetiapine to aid sleep. - Onset: Pain returned to previous intensity after one month of relief post- ablation - Quality: Localized, predominantly on the right side, with some involvement on the left - Exacerbating factors: Movement, particularly transitioning from sitting to standing - Relieving factors: Physical therapy, acupuncture, heating pad, and regular exercise - Affect: Pain impacts daily activities and mood, but patient remains active - Analgesia: Current medications include muscle relaxants and cesb-dod-cisaomb analgesics, with limited relief - Adverse Effects: No specific adverse effects reported from current medications - Activities of Daily Living: Pain limits some activities, but patient maintains regular exercise routine - Aberrant Drug Related Behaviors: No aberrant behaviors reported He previously underwent bilateral diagnostic L3-L4 DR L5 medial branch blocks where he reported 100% pain relief for 6 hours after the procedure. After this he had repeat diagnostic L3-L4 DR L5 medial branch block injections where he reported 100% pain relief for 3 hours after and 90% for 2 days. [facility] Medical History (Updated 02/02/25 @ 11:14 by Johana Fraser, CORPORATE PILOT, INORGANIC CHEMIST) Hypothyroidism AZUCENA (obstructive sleep apnea) Hypertension Chronic low back pain Chronic kidney disease Carotid artery stenosis Bipolar 1 disorder Arthritis of foot, degenerative Anxiety Allergic rhinitis Surgical History (Updated 02/02/25 @ 11:09 by Johana Fraser APRN, INORGANIC CHEMIST) H/O cystoscopy History of surgery Hx of laminectomy History of partial colectomy Hx of appendectomy History of tonsillectomy Social History Are you a primary caregiver assisted living to a significant other at home: No Do you presently have visiting nurse or other home services: No Alcohol intake: current Alcohol intake frequency: holidays/special occasions only Patient Tobacco Use Status: Former Tobacco user Tobacco use type: Cigarette Review of Systems Const Details: - Musculoskeletal: Reports chronic pain in the right lumbar region, exacerbated by movement - Cardiovascular: Reports hypertension with blood pressure readings ranging from 130 to 177 mmHg - Neurological: Reports insomnia, managed with quetiapine Physical Exam Exam Exam: General: awake, alert, oriented. Answers questions appropriately. Fully engaged in examination. Skin: warm, dry, intact HEENT: Normocephalic. Hearing intact. Cardiac: External chest normal in appearance. Respiratory: No cough, audible wheezing or stridor. Abdomen: without gross distension. MS: No obvious swelling or deformities. Able to transition from sit to stand unassisted. Tender to palpation midline lumbar vertebrae and lumbar paraspinal muscles, right greater than left SLR negative bilaterally Bilateral lower extremity strength 5/5 Neurological: Oriented to person, place, time and situation. Thought process intact. Ambulates with use of a cane Psychiatric: Appropriate mood and affect. Good judgment and insight. Vital Signs: Last Vital Signs Pulse 75 05/20/25 09:43 Resp 16 05/20/25 09:43 BP 157/76 H 05/20/25 09:43 Pulse Ox 95 05/20/25 09:43 Oxygen Delivery Method Room Air 05/20/25 09:43 BMI result Body Mass Index 35.1 Results Reviewed Results Reviewed: 08/27/24 x-ray lumbar spine FINDINGS: Multilevel marginal osteophyte formation and syndesmophyte formation. Decreased intervertebral disc height at L5-S1 and L3-4 level. Levoconvex curvature. No acute cortical disruption or gross malalignment. No lytic or blastic lesions. Degenerative changes in the right coxofemoral joint. IMPRESSION: Multilevel thoracolumbar spondylosis without acute fracture. Osteoarthrosis, right hip. 11/02/2023 MRI LS Assessment & Plan Assessment & Plan (1) Lumbar spondylosis: Code(s): M47.816 - Spondylosis without myelopathy or radiculopathy, lumbar region Category: Medical (2) Spinal stenosis of lumbar region: Code(s): M48.061 - Spinal stenosis, lumbar region without neurogenic claudication Category: Medical Plan The plan includes ordering an MRI of the lumbar region to assess for any underlying issues contributing to the chronic pain. Therapeutic injections to the joints are considered, pending insurance approval, to provide longer-term relief. A different muscle relaxant will be prescribed due to the limited efficacy of the current medication. The patient is advised to continue physical therapy and acupuncture as part of the pain management strategy. Will schedule for fluoroscopy guided bilateral therapeutic L3-L4 DR L5 medial branch blocks with local anesthetic. Patient was informed and verbally consented to the use of an ambient scribe for clinic note documentation during this visit. Orders: Orders 2 MR lumbar spine wo con Today M47.816 - Spondylosis without myelopathy or radiculopathy, lumbar region, M48.061 - Spinal stenosis, lumbar region without neurogenic claudication Medications: Changed 2 From methocarbamol Discontinue use of Baclofen No driving while taking this medication. Do no take with alcohol or other HOSPITAL LIAISON Depressants 500 mg PO TID PRN 90 tabs 1RF muscle spasm To methocarbamol No driving while taking this medication. Do no take with alcohol or other HOSPITAL LIAISON Depressants 500 mg PO TID PRN 90 tabs 1RF muscle spasm Discontinued 2 tizanidine May cause drowsiness, no driving while taking this medication. Discontinue baclofen prior to starting this medication. Discontinued Reason: Doctor's Order 2 mg PO BID 60 tabs 1RF Patient Instructions: - Continue physical therapy and acupuncture sessions regularly. - Await a call to schedule the MRI of the lumbar region. - Monitor blood pressure regularly and report any significant changes. - Follow up with the clinic if pain worsens or if there are any new symptoms. Coding Level of Care Code Est Pt Level 3 (78154) Complex EM visit Add On G2211 Diagnoses Lumbar spondylosis M47.816 Spinal stenosis of lumbar region M48.061
== END 2025-05-20 11:01 | disposition home or self-care (01) ==
PROVIDERS: PCP Nurse Practitioner Family; Visit Provider Registered Nurse Emergency
DX: M47.816 Spondylosis without myelopathy or radiculopathy, lumbar region (principal); M48.061 Spinal stenosis, lumbar region without neurogenic claudication
CPT/HCPCS: 99213; G2211

== ENCOUNTER → 2025-05-20 09:34 | Outpatient (BNVA) | payer MEDICARE, SELFPAY | PROVIDERS: PCP Nurse Practitioner Family; Visit Provider Registered Nurse Emergency | DX: M54.50 Low back pain, unspecified (principal); G89.29 Other chronic pain; M47.816 Spondylosis without myelopathy or radiculopathy, lumbar region; M48.061 Spinal stenosis, lumbar region without neurogenic claudication | CPT/HCPCS: 99212 ==

== ENCOUNTER 2025-06-27 18:15 | Outpatient (REF) | payer MEDICARE, SELFPAY ==
--- NOTE | ~2025-06-27 | MR_ITS ---
EXAMINATION: MR LUMBAR SPINE WITHOUT CONTRAST CLINICAL INFORMATION: M47.816 . Spondylosis without myelopathy or radiculopathy, lumbar region. COMPARISON: None available. TECHNIQUE: MRI of the lumbar spine was obtained using routine sequences without contrast. FINDINGS: Last rib-bearing vertebra labeled T12. Bone marrow STIR signal at the endplates of L3-4. Multilevel marginal osteophyte formation, decreased intervertebral disc height and signal and Schmorl nodes from T11-12 to L5-S1, pronounced at L3-4. Grade 1 retrolisthesis, L3-4, L5-S1 and to a lesser extent L2-3 and L1-2 levels. Grade 1 anterolisthesis L4-5 Conus medullaris ends at inferior endplate of L1 with normal signal. T11-12: No disc herniation. Facet joint hypertrophy. T12-L1: Progress bulging. Facet joint hypertrophy. No compression upon neural elements. L1-2: Broad-based disc bulging. Facet joint hypertrophy as well as ligamentum flavum. No compression upon neural elements. L2-3: Broad-based disc bulging. Facet joint and ligamentum flavum hypertrophy. Reduced AP diameter of the thecal sac and neuroforamina. L3-4: Broad-based disc bulging. Facet joint and ligamentum flavum hypertrophy resulting in CSF effacement of the thecal sac central spinal canal stenosis compressing the neural elements of the thecal sac. There is bilateral neuroforamina stenosis encroaching the L3 exiting nerve roots. L4-5: Broad-based disc bulging. Facet joint and ligamentum flavum hypertrophy resulting in CSF effacement of the thecal sac central spinal canal stenosis compressing the neural elements. There is bilateral neuroforamina narrowing encroaching the L4 exiting nerve roots. There is a 6 mm CSF correlated signal abnormality beneath the right ligamentum flavum. L5-S1: Broad-based disc bulging. Facet joint hypertrophy. No central spinal canal stenosis. Bilateral neuroforamina narrowing, left greater than right likely encroaching the L5 exiting nerve roots. Slight asymmetric volume loss right psoas muscle. Multiple different sizes hyperintense T2 cystic lesions in the kidneys. No prevertebral compartment hematoma, mass or fluid collection.. MR/MR lumbar spine wo con IMPRESSION: Multilevel spondylosis pronounced at L3-4 and L4-5 resulting in central spinal canal stenosis compressing the neural elements of the thecal sac. 6 mm synovial cyst, right L4-5 facet joint contributing to the central spinal canal stenosis. Grade 1 retrolisthesis L3-4, L5-S1 and to a lesser extent L2-3. Grade 1 anterolisthesis L4-5. Electronically signed by: Douglas Turpin MD 06/28/2025 08:02 AM EDT
--- OUTSIDE RECORDS SUMMARY | 2025-06-27 18:28 | XMS_ITS | Patient Health Record ---
[facility] Address [address] [place] [address] Care Team Providers Care Butter Melter Name Role Phone Franc Prince MD Primary Care Provider Unavailab Jovanny James Unavailable [phone] Reason For Referral No Information Medications Medication SIG (Take, Route, Frequency, Duration) Notes Start Date End Date Status CeleBREX Not-Taking traMADol HCl Active Glucosamine Sulfate Active Finasteride Active Ipratropium [place] Active Simvastatin 40 mg Ac tive Aggrenox [...] X ray : Foot, right 3V 06/01/2012 07001-Kzif Destruction, -14 03/23/2012 30407-Jpcf Destruction, -14 12/04/2012 87294-Buko Destruction, 1-14 08/21/2012 32186, [id number]/INJECT, JOINT/BURSA 0 06/24/201413245, [id number]-STDTN/INJECT, JOINT/BURSA 1 00, A8033-XOJMY/INJECT, JOINT/BURSA 1 10/26/201376142, R8865-IEJAS/INJECT, JOINT/BURSA 0 10/14/201487921, B8112-TSBDG/INJECT, JOINT/BURSA 0 11/15/201486372,I4784-IQE TENDON SHEATH/LIGAMENT 1 66816,[id number]-RND TENDON SHEATH/LIGAMENT 1 10/11/2011 20067,[id number]-HSV TENDON SHEATH/LIGAMENT 1 11/09/2011 Insurance Providers Payer Name Payer Address Payer Phone Subscriber Number Group Number Insured Name Patient Relationship to Insured Coverage Start Date Coverage End Date [facility] [address] [facility] [place] [id number] Agustín Law Self - patient is the insured Medical (General) History Medical History History ICD Code stroke thyroid disorder measles high blood pressure prostate conditions cholesterol kidney problems Surgical History Surgery Date(Month/Year) foot surgery
--- OUTSIDE RECORDS SUMMARY | 2025-06-27 18:28 | XMS_ITS | Clinical Summary ---
Author Organization [facility] Address [address] [place] [address] Care Team Providers Care Design Verification Engineer Name Role Phone Anna Spencer Primary Care Provider [phone] Allergies Active Allergy Reactions Criticality Noted Date Comments Animal Dander Unknown 03/05/2023 House Dust Unknown 03/05/2023 Medications atorvastatin (LIPITOR) 20 mg tablet SMARTSI Tablet(s) By Mouth Daily 12/09/2022 Active azelastine (ASTELIN) 137 mcg (0.1 %) nasal spray SMARTSI [place](s) Both Nares Twice Daily PRN 01/22/2023 Active [...] PCV20 or PCV21) 01/05/2020 01/04/2015, 12/22/2008, 06/21/2007 Alcohol/Substance Use Screening 10/06/2024 Depression Screening and Follow-Up 10/06/2024 Health Care Proxy Review 10/06/2024 Social Drivers of Health Annual Screening 10/06/2024 COVID-19 Vaccine ( - 2024- season) 2025 07/23/2021, 12/08/2020, 11/17/2020 Influenza Vaccine (#1) 2025 2, 06/14/2022, 06/10/2021, Additional history exists Hepatitis B Vaccines Aged Out No long er eligible based on patient's age to complete this topic Insurance [facility] MEDICARE Care Teams Design Verification Engineer Relationship Specialty Start Date End Date Anna Spencer [address] [place] [id number] PCP - General 01/23/23
== END 2025-06-27 18:16 | disposition home or self-care (01) ==
LOC: HO.MRI 18:15
PROVIDERS: Visit Provider Registered Nurse Emergency
DX: M47.816 Spondylosis without myelopathy or radiculopathy, lumbar region (principal); M48.061 Spinal stenosis, lumbar region without neurogenic claudication
CPT/HCPCS: 72148

== ENCOUNTER → 2025-06-27 18:22 | Outpatient (BNV) | payer MEDICARE, SELFPAY | PROVIDERS: Visit Provider Radiology Diagnostic Radiology | DX: M47.816 Spondylosis without myelopathy or radiculopathy, lumbar region (principal); M48.061 Spinal stenosis, lumbar region without neurogenic claudication | CPT/HCPCS: 72148 ==

== ENCOUNTER 2025-08-04 09:16 | Outpatient (AMB) | payer MEDICARE, SELFPAY ==
[2025-08-04 09:19] VITALS: BP 178/84; PULSE 77; RESP 16; O2SAT 96; BMI 35.7
--- NOTE | 2025-08-04 09:19 | MHC.OFFVIS ---
Vital Signs 08/04/25 09:19 Height 5 ft 8 in Weight 235 lb BMI 35.7 BP 178/84 H Blood Pressure Location Rt brachial Position Sitting Respiration 16 Pulse 77 Pulse Source Pulse Oximeter Pulse Oximetry (%) 96 Oxygen Delivery Method Room Air Intake Visit Reasons: MRI REVIEW Aviation Electrical Technician Required: No Accompanied by: Self / Same As Patient Allergies No Known Allergies Allergy (Verified 08/04/25 09:23) HPI Comments Details: Agustín is an 80-year-old male presenting with chronic pain in the right lumbar region. He denies radiation of the pain into bilateral lower extremities. He denies weakness in bilateral lower extremities. He denies numbness in bilateral lower extremities. He admits difficulty walking upright and admits using a cart in the supermarket to lean forward to alleviate his pain. However he denies tiredness of the bilateral lower extremities with walking, he reports that he walks 1-2 miles every day in the local part. He denies incontinence with urine and or stool. He denies urinary retention. He is scheduled for right-sided L3-L4 L4-5 transforaminal epidural steroid injection. I will do this procedure and after that I will decide what is the appropriate way of treatment of this patient. We did radiofrequency ablation for him in 2023 and it resulted in complete pain relief for 1 month only. Unfortunately this is not the way to treat the pain of this patient. I suggested that the patient might have neurosurgical consult considering that on his MRI recently obtained there is very severe L4-5 spinal canal stenosis. I told the patient that it is a miracle that he does not have pelvic organ dysfunction and have only minimal symptoms of spinal stenosis as pain of lumbar spine in upright walking. Interventions have included physical therapy, acupuncture, and trigger point injections, which provided temporary relief. The patient has been using a heating pad and engaging in regular exercise at the gym, which he believes helps manage the pain to some extent. The patient has a history of hypertension, managed with carvedilol and amlodipine, and reports blood pressure readings ranging from 130 to 177 mmHg. He also has a history of heart disease and insomnia, for which he takes quetiapine to aid sleep. - Onset: Pain returned to previous intensity after one month of relief post-ablation - Quality: Localized, predominantly on the right side, with some involvement on the left - Exacerbating factors: Movement, particularly transitioning from sitting to standing - Relieving factors: Physical therapy, acupuncture, heating pad, and regular exercise - Affect: Pain impacts daily activities and mood, but patient remains active - Analgesia: Current medications include muscle relaxants and [id number] analgesics, with limited relief - Adverse Effects: No specific adverse effects reported from current medications - Activities of Daily Living: Pain limits some activities, but patient maintains regular exercise routine - Aberrant Drug Related Behaviors: No aberrant behaviors reported He previously underwent bilateral diagnostic L3-L4 DR L5 medial branch blocks where he reported 100% pain relief for 6 hours after the procedure. After this he had repeat diagnostic L3-L4 DR L5 medial branch block injections where he reported 100% pain relief for 3 hours after and 90% for 2 days. [facility] Medical History (Updated 08/04/25 @ 09:53 by Jimmy Cooper MD) Hypothyroidism AZUCENA (obstructive sleep apnea) Hypertension Chronic low back pain Chronic kidney disease Carotid artery stenosis Bipolar 1 disorder Arthritis of foot, degenerative Anxiety Allergic rhinitis Surgical History (Updated 02/02/25 @ 11:09 by Johana Fraser APRN, BONDING MOLDER) H/O cystoscopy History of surgery Hx of laminectomy History of partial colectomy Hx of appendectomy History of tonsillectomy Social History Are you a primary neonatal critical care nurse to a significant other at home: No Do you presently have visiting nurse or other home services: No Alcohol intake: current Alcohol intake frequency: holidays/special occasions only Patient Tobacco Use Status: Former Tobacco user Tobacco use type: Cigarette Review of Systems Const All systems reviewed & are unremarkable except as noted in HPI and below Physical Exam Exam Exam: General: awake, alert, oriented. Answers questions appropriately. Fully engaged in examination. Skin: warm, dry, intact HEENT: Normocephalic. Hearing intact. Cardiac: External chest normal in appearance. Respiratory: No cough, audible wheezing or stridor. Abdomen: without gross distension. MS: No obvious swelling or deformities. Able to transition from sit to stand unassisted. Tender to palpation midline lumbar vertebrae and lumbar paraspinal muscles, right greater than left SLR negative bilaterally Bilateral lower extremity strength 5/5 Neurological: Oriented to person, place, time and situation. Thought process intact. Ambulates with use of a cane Psychiatric: Appropriate mood and affect. Good judgment and insight. Vital Signs: Last Vital Signs Pulse 77 10/30/25 09:19 Resp 16 08/04/25 09:19 BP 178/84 H 08/04/25 09:19 Pulse Ox 96 08/04/25 09:19 Oxygen Delivery Method Room Air 08/04/25 09:19 BMI result Body Mass Index 35.7 Back/Spine/Pelvis Other: SLR is negative bilaterally. Lasegue test is negative bilaterally. Bilateral patellar reflexes +1 rather sluggish. The right Achilles reflex is +1, left Achilles reflex is 0. He denies difficulty sitting. Reports sitting alleviate his pain. Reports pain aggravated when he stands up from the sitting position. Valsalva is negative for pain increase. Results Reviewed Results Reviewed: MR LUMBAR SPINE WITHOUT CONTRAST FINDINGS: Last rib-bearing vertebra labeled T12. Bone marrow STIR signal at the endplates of L3-4. Multilevel marginal osteophyte formation, decreased intervertebral disc height and signal and Schmorl nodes from T11-12 to L5-S1, pronounced at L3-4. Grade 1 retrolisthesis, L3-4, L5-S1 and to a lesser extent L2-3 and L1-2 levels. Grade 1 anterolisthesis L4-5 Conus medullaris ends at inferior endplate of L1 with normal signal. T11-12: No disc herniation. Facet joint hypertrophy. T12-L1: Progress bulging. Facet joint hypertrophy. No compression upon neural elements. L1-2: Broad-based disc bulging. Facet joint hypertrophy as well as ligamentum flavum. No compression upon neural elements. L2-3: Broad-based disc bulging. Facet joint and ligamentum flavum hypertrophy. Reduced AP diameter of the thecal sac and neuroforamina. L3-4: Broad-based disc bulging. Facet joint and ligamentum flavum hypertrophy resulting in CSF effacement of the thecal sac central spinal canal stenosis compressing the neural elements of the thecal sac. There is bilateral neuroforamina stenosis encroaching the L3 exiting nerve roots. L4-5: Broad-based disc bulging. Facet joint and ligamentum flavum hypertrophy resulting in CSF effacement of the thecal sac central spinal canal stenosis compressing the neural elements. There is bilateral neuroforamina narrowing encroaching the L4 exiting nerve roots. There is a 6 mm CSF correlated signal abnormality beneath the right ligamentum flavum. L5-S1: Broad-based disc bulging. Facet joint hypertrophy. No central spinal canal stenosis. Bilateral neuroforamina narrowing, left greater than right likely encroaching the L5 exiting nerve roots. Slight asymmetric volume loss right psoas muscle. Multiple different sizes hyperintense T2 cystic lesions in the kidneys. No prevertebral compartment hematoma, mass or fluid collection.. MR/MR lumbar spine wo con IMPRESSION: Multilevel spondylosis pronounced at L3-4 and L4-5 resulting in central spinal canal stenosis compressing the neural elements of the thecal sac. 6 mm synovial cyst, right L4-5 facet joint contributing to the central spinal canal stenosis. Grade 1 retrolisthesis L3-4, L5-S1 and to a lesser extent L2-3. Grade 1 anterolisthesis L4-5. Assessment & Plan Assessment & Plan (1) Lumbar spondylosis: Code(s): M47.816 - Spondylosis without myelopathy or radiculopathy, lumbar region Category: Medical (2) Spinal stenosis of lumbar region: Code(s): M48.061 - Spinal stenosis, lumbar region without neurogenic claudication Category: Medical (3) Radiculopathy, lumbar region: Code(s): M54.16 - Radiculopathy, lumbar region Category: Medical Plan MRI of this patient demonstrated again severe spinal canal stenosis. The radiologist in his note states that the patient has nerve root compression at L4-5. However patient denies pelvic organ dysfunction and he denies symptoms of spinal stenosis in the lower extremities. The only spinal stenosis symptoms he admits to is in fact difficulty to upright walking. Nevertheless the patient walks from 1-2 miles a day in local park. It is just a matter of pain he is able are not able to tolerate. I believe patient does not neurogenic claudication. He is scheduled for right-sided L4-5 L5-S1 transforaminal epidural steroid injection. I will do this procedure on 08/16/2025. After that we will sit again and discuss how else we can help this patient to tolerate his condition better. The diagnosis of the radiculopathy is a straight for this patient however the reflexes dictated as above might be pointing to radiculopathic changes. Patient Instructions: I here by testify that I spent 39 minutes in conversation with this patient as well as planning his care and organizing this note. Coding Level of Care Code Est Pt Level 4 (38013) Diagnoses Lumbar spondylosis M47.816 Spinal stenosis of lumbar region M48.061 Radiculopathy, lumbar region M54.16
--- OUTSIDE RECORDS SUMMARY | 2025-08-04 10:30 | XMS_ITS | Clinical Summary ---
Author Organization [facility] Address [address] [place] [address] Care Team Providers Care Block Mechanic Name Role Phone Anna Spencer Primary Care Provider [phone] Allergies Active Allergy Reactions Criticality Noted Date Comments Animal Dander Unknown 03/05/2023 House Dust Unknown 03/05/2023 Medications atorvastatin (LIPITOR) 20 mg tablet SMARTSI Tablet(s) By Mouth Daily 12/09/2022 Active azelastine (ASTELIN) 137 mcg (0.1 %) nasal spray SMARTSI [place](s) Both Nares Twice Daily PRN 01/22/2023 Active [...] patient's age to complete this topic Insurance [facility] MEDICARE Care Teams Block Mechanic Relationship Specialty Start Date End Date Anna Spencer [address] [place] [id number] PCP - General 01/23/23
--- OUTSIDE RECORDS SUMMARY | 2025-08-04 10:30 | XMS_ITS | Clinical Summary ---
Author Organization [facility] Address [address] [place] [address] Phone Care Team Providers Care Clothing Sales Assistant Name Role Phone Franc Prince MD Primary Care Provider [phone] Social History Tobacco Use Types Packs/Day Years Used Date Smoking Tobacco: Never Assessed Sex and Gender Information Value Date Recorded Sex Assigned at Not on file Legal Sex Male 9:08 AM EST Gender Identity Not on file Sexual Orientation Not on file Plan of Treatment Not on file Medical Devices Not [place] [id number] MEDICARE PART A & B [employer] MEDEX SUPPLEMENT MEDICARE PART A & B Member Subscriber Plan / Payer (Ef fective 2013-Present) Name:Agustín Law Member ID:[id number] Relation to Subscriber:Self Name:Agustín Law Subscriber ID:[id number] Payer ID:[id number] Group ID:Not on file Type:Medicare Address: [employer] [address] [place], [place] [id number] [place] [address] MEDEX SUPPLEMENT MEDICARE PART A & B [employer] MEDEX SUPPLEMENT MEDICARE PART A & B [employer] MEDEX SUPPLEMENT MEDICARE PART A & B [employer] MEDEX SUPPLEMENT MEDICARE PART A & B [employer] MEDEX SUPPLEMENT MEDICARE PART A & B [employer] MEDEX SUPPLEMENT MEDICARE PART A & B [employer] MEDEX SUPPLEMENT MEDICARE PART A & B [employer] MEDEX SUPPLEMENT Care Teams Clothing Sales Assistant Relationship Specialty Start Date End Date Franc Prince MD PCP - General Internal Medicine 12/04/15 Additional Source Comments The information contained in this document represents components of the legal health record. It is not the complete legal health record.[facility]
--- OUTSIDE RECORDS SUMMARY | 2025-08-04 10:30 | XMS_ITS | Patient Health Record ---
[facility] Address [address] [facility] [place] [address] Care Team Providers Care Bioinformatics Support Specialist Name Role Phone Franc Prince MD Primary Care Provider Unavailab Jovanny James Unavailable [phone] Reason For Referral No Information Medications Medication SIG (Take, Route, Frequency, Duration) Notes Start Date End Date Status CeleBREX Not-Taking traMADol HCl Active Glucosamine Sulfate Active Finasteride Active Ipratropium [place] Active Simvastatin 40 mg Ac tive Aggrenox [...] X ray : Foot, right 3V 06/01/2012 86035-Cyvn Destruction, -14 03/23/2012 09560-Sztc Destruction, -14 12/04/2012 30025-Vlzq Destruction, 1-14 08/21/2012 91100, K9245-XSXSQ/INJECT, JOINT/BURSA 0 06/24/201494034, I5326-KTCWO/INJECT, JOINT/BURSA 1 00, R6656-OAHSA/INJECT, JOINT/BURSA 1 10/26/201331536, C5823-SXREC/INJECT, JOINT/BURSA 0 10/14/201413206, P2560-PUAXH/INJECT, JOINT/BURSA 0 11/15/201461681,Y1807-ZZO TENDON SHEATH/LIGAMENT 1 27313,H7123-HAS TENDON SHEATH/LIGAMENT 1 10/11/2011 23384,T5503-KOW TENDON SHEATH/LIGAMENT 1 11/09/2011 Insurance Providers Payer Name Payer Address Payer Phone Subscriber Number Group Number Insured Name Patient Relationship to Insured Coverage Start Date Coverage End Date [facility] [address] [facility] [place] [id number] Agustín Law Self - patient is the insured Medical (General) History Medical History History ICD Code stroke thyroid disorder measles high blood pressure prostate conditions cholesterol kidney problems Surgical History Surgery Date(Month/Year) foot surgery
== END 2025-08-04 09:39 | disposition home or self-care (01) ==
PROVIDERS: Visit Provider Anesthesiology
DX: M47.816 Spondylosis without myelopathy or radiculopathy, lumbar region (principal); M48.061 Spinal stenosis, lumbar region without neurogenic claudication; M54.16 Radiculopathy, lumbar region
CPT/HCPCS: 99214

== ENCOUNTER → 2025-08-04 09:16 | Outpatient (BNVA) | payer MEDICARE, SELFPAY | PROVIDERS: Visit Provider Anesthesiology | DX: Z71.2 Person consulting for explanation of examination or test findings (principal); M47.816 Spondylosis without myelopathy or radiculopathy, lumbar region; M48.061 Spinal stenosis, lumbar region without neurogenic claudication; M54.16 Radiculopathy, lumbar region | CPT/HCPCS: 99212 ==

== ENCOUNTER 2025-08-16 06:15 | Outpatient (REF) | payer MEDICARE, SELFPAY ==
--- NOTE | ~2025-08-16 | FL_ITS ---
EXAMINATION: FLUOROSCOPY GUIDANCE FOR NEEDLE PLACEMENT CLINICAL INFORMATION: M54.16 - Radiculopathy, lumbar region COMPARISON: Previous lumbar spine MRI June 2025 TECHNIQUE: Fluoroscopy guidance for pain management procedure FINDINGS: Images demonstrate needle placement and contrast injection over 4 right lateral lumbar vertebrae. See procedure note for detailed findings. FLUOROSCOPY TIME: 28 seconds DOSE AREA PRODUCT: 5 saved fluoroscopic images. 184 1 mgy/sq cm FL/FL guidance in treatment room IMPRESSION: Fluoroscopy guidance for pain management procedure. Electronically signed by: Pebbles Jacques MD 08/16/2025 12:11 PM JORDY
--- OUTSIDE RECORDS SUMMARY | 2025-08-16 06:18 | XMS_ITS | Patient Health Record ---
[facility] Address [address] [facility] [place] [address] Care Team Providers Care It Security Administrator Name Role Phone Franc Prince MD Primary Care Provider Unavailab Jovanny James Unavailable [phone] Reason For Referral No Information Medications Medication SIG (Take, Route, Frequency, Duration) Notes Start Date End Date Status CeleBREX Not-Taking traMADol HCl Active Glucosamine Sulfate Active Finasteride Active Ipratropium [place] Active Simvastatin 40 mg Ac tive Aggrenox [...] X ray : Foot, right 3V 06/01/2012 43392-Fxni Destruction, -14 03/23/2012 72799-Zwny Destruction, -14 12/04/2012 98480-Fntn Destruction, 1-14 08/21/2012 96363, V9341-HWDRN/INJECT, JOINT/BURSA 0 06/24/201408030, N7946-BBDBX/INJECT, JOINT/BURSA 1 00, F7237-BHAEJ/INJECT, JOINT/BURSA 1 10/26/201338594, X2874-TLQVL/INJECT, JOINT/BURSA 0 10/14/201461390, C9884-OVQVN/INJECT, JOINT/BURSA 0 11/15/201431394,Z9100-LOD TENDON SHEATH/LIGAMENT 1 38854,C8749-GTQ TENDON SHEATH/LIGAMENT 1 10/11/2011 18932,F8054-LPH TENDON SHEATH/LIGAMENT 1 11/09/2011 Insurance Providers Payer Name Payer Address Payer Phone Subscriber Number Group Number Insured Name Patient Relationship to Insured Coverage Start Date Coverage End Date [facility] [address] [facility] [place] [id number] Agustín Law Self - patient is the insured Medical (General) History Medical History History ICD Code stroke thyroid disorder measles high blood pressure prostate conditions cholesterol kidney problems Surgical History Surgery Date(Month/Year) foot surgery
--- OUTSIDE RECORDS SUMMARY | 2025-08-16 06:18 | XMS_ITS | Clinical Summary ---
Author Organization [facility] Address [address] [place] [address] Phone Care Team Providers Care Pet Adoption Counselor Name Role Phone Franc Prince MD Primary Care Provider [phone] Social History Tobacco Use Types Packs/Day Years Used Date Smoking Tobacco: Never Assessed Sex and Gender Information Value Date Recorded Sex Assigned at Not on file Legal Sex Male 9:08 AM EST Gender Identity Not on file Sexual Orientation Not on file Plan of Treatment Not on file Medical Devices Not on [place] [address] MEDICARE PART A & B [employer] MEDEX SUPPLEMENT MEDICARE PART A & B Member Subscriber Plan / Payer (Ef fective 2013-Present) Name:Agustín Law Member ID:[id number] Relation to Subscriber:Self Name:Agustín Law Subscriber ID:[id number] Payer ID:[id number] Group ID:Not on file Type:Medicare Address: [employer] [address] [place], [place] [id number] [place] [address] MEDEX SUPPLEMENT MEDICARE PART A & B [employer] MEDEX SUPPLEMENT MEDICARE PART A & B [employer] MEDEX SUPPLEMENT MEDICARE PART A & B [employer] MEDEX SUPPLEMENT MEDICARE PART A & B [employer] MEDEX SUPPLEMENT MEDICARE PART A & B [employer] MEDEX SUPPLEMENT MEDICARE PART A & B [employer] MEDEX SUPPLEMENT MEDICARE PART A & B [employer] MEDEX SUPPLEMENT Care Teams Pet Adoption Counselor Relationship Specialty Start Date End Date Franc Prince MD PCP - General Internal Medicine 12/04/15 Additional Source Comments The information contained in this document represents components of the legal health record. It is not the complete legal health record.[facility]
--- OUTSIDE RECORDS SUMMARY | 2025-08-16 06:18 | XMS_ITS | Clinical Summary ---
Author Organization [facility] Address [address] [place] [address] Care Team Providers Care Tar Man Name Role Phone Anna Spencer Primary Care Provider Allergies Active Allergy Reactions Criticality Noted Date Comments Animal Dander Unknown 03/05/2023 House Dust Unknown 03/05/2023 Medications atorvastatin (LIPITOR) 20 mg tablet SMARTSI Tablet(s) By Mouth Daily 12/09/2022 Active azelastine (ASTELIN) 137 mcg (0.1 %) nasal spray SMARTSI [place](s) Both Nares Twice Daily PRN 01/22/2023 Active [...] Screening 10/06/2024 Depression Screening and Follow-Up 10/06/2024 Fall Risk Screening 10/06/2024 Health Care Proxy Review 10/06/2024 Social Drivers of Health Annual Screening 10/06/2024 COVID-19 Vaccine ( - season) 2025 07/23/2021, 12/08/2020, 11/17/2020 Influenza Vaccine (#1) 2025 2, 06/14/2022, 06/10/2021, Additional history exists Hepatitis B Vaccines Aged Out No long er eligible based on patient's age to complete this topic Insurance [facility] MEDICARE Care Teams Tar Man Relationship Specialty Start Date End Date Anna Spencer [address] [place] [id number] PCP - General 01/23/23
== END 2025-08-16 06:16 | disposition home or self-care (01) ==
LOC: CF 06:15
PROVIDERS: Visit Provider Anesthesiology
DX: M48.061 Spinal stenosis, lumbar region without neurogenic claudication (principal); M47.26 Other spondylosis with radiculopathy, lumbar region
CPT/HCPCS: 64483; 64484; J2003; J3301; Q9967

== ENCOUNTER 2025-08-16 09:15 | Outpatient (AMB) | payer MEDICARE, SELFPAY ==
[2025-08-16 09:17] VITALS: BP 170/77; PULSE 73; RESP 16; O2SAT 100; BMI 35.7
--- NOTE | 2025-08-16 09:17 | A.OFFVIS_ITS ---
Vital Signs 08/16/25 09:17 08/16/25 09:59 Height 5 ft 8 in Weight 235 lb BMI 35.7 BP 170/77 H 186/94 H Blood Pressure Location Lt radial Lt brachial Position Sitting Sitting Respiration 16 16 Pulse 73 71 Pulse Source Pulse Oximeter Pulse Oximeter Pulse Oximetry (%) 100 98 Oxygen Delivery Method Room Air Room Air Intake Visit Reasons: Right L3-L4-L5 TFESI Allergies No Known Allergies Allergy (Verified 08/04/25 09:23) PFSH Medical History (Updated 08/04/25 @ 09:53 by Jimmy Cooper MD) Hypothyroidism AZUCENA (obstructive sleep apnea) Hypertension Chronic low back pain Chronic kidney disease Carotid artery stenosis Bipolar 1 disorder Arthritis of foot, degenerative Anxiety Allergic rhinitis Surgical History (Updated 02/02/25 @ 11:09 by Johana Fraser APRN, CUSTOMER SERVICE DRIVER) H/O cystoscopy History of surgery Hx of laminectomy History of partial colectomy Hx of appendectomy History of tonsillectomy Social History Are you a primary field care advocate to a significant other at home: No Do you presently have visiting nurse or other home services: No Alcohol intake: current Alcohol intake frequency: holidays/special occasions only Patient Tobacco Use Status: Former Tobacco user Tobacco use type: Cigarette Physical Exam Vital Signs: Last Vital Signs Pulse 71 08/16/25 09:59 Resp 16 08/16/25 09:59 BP 186/94 H 08/16/25 09:59 Pulse Ox 98 08/16/25 09:59 Oxygen Delivery Method Room Air 08/16/25 09:59 BMI result Body Mass Index 35.7 Assessment & Plan Assessment & Plan (1) Lumbar spondylosis: Code(s): M47.816 - Spondylosis without myelopathy or radiculopathy, lumbar region Category: Medical (2) Spinal stenosis of lumbar region: Code(s): M48.061 - Spinal stenosis, lumbar region without neurogenic claudication Category: Medical (3) Radiculopathy, lumbar region: Code(s): M54.16 - Radiculopathy, lumbar region Category: Medical Plan Right L3-L4 and L4-5 transforaminal epidural steroid injection. Patient came to the room after obtaining informed consent were risks and bene fits were carefully explained to him using interpreting services of his significant other. He was positioned prone on operating table and his lower back was prepped with ChloraPrep and draped with sterile self adhesive utility towels. The time-out was performed delineating name and date of of the patient side and site of the procedure allergies of the patient. C-arm was brought over the operating field and sq picture of the L4 vertebra was demonstrated on the screen. Initially right superior articular process of L5 was chosen as the target of the needle advancement. The lateral border of the superior articular process of L5 projection to the skin was injected with small amount of lidocaine 1% forming a skin wheal. After that 22 gauge 5 in needle was inserted through the skin wheal and advanced to were the lateral border of the superior articular process of L5 on the right in tunnel vision fashion. When tip of the needle gently contacted the target the needle was deviated sl ightly lateral advanced 3 mm and deviated medial. When tip of the needle entering foramina injection of the contrast was performed delineating epidural spread of the contrast. After that injection of the treatment solution of lidocaine 1% preservative-free mixed with Kenalog 40 mg was performed into the needle. After that the procedure was repeated 1 level below in the same fashion. Total dose of Kenalog was 40 mg. The patient tolerated the procedure well. The needle was withdrawn and Band-Aid was applied. He was taken outside of the operating room to recovery room where he recovered uneventfully. Orders: Orders FL guidance in treatment room Today M54.16 - Radiculopathy, lumbar region Coding Level of Care Code Procedure Only Diagnoses Lumbar spondylosis M47.816 Spinal stenosis of lumbar region M48.061 Radiculopathy, lumbar region M54.16
[2025-08-16 09:59] VITALS: BP 186/94; PULSE 71; RESP 16; O2SAT 98
== END 2025-08-16 10:03 | disposition home or self-care (01) ==
LOC: HO.PMCPRC 09:15
PROVIDERS: Visit Provider Anesthesiology
DX: M54.16 Radiculopathy, lumbar region (principal)
CPT/HCPCS: 64483; 64484

== ENCOUNTER 2025-09-16 09:40 | Outpatient (AMB) | payer MEDICARE, SELFPAY ==
--- NOTE | 2025-09-16 09:47 | MHC.OFFVIS ---
Vital Signs 09/16/25 09:48 Height 5 ft 8 in Weight 230 lb BMI 35.0 BP 177/79 H Blood Pressure Location Rt brachial Position Sitting Respiration 16 Pulse 86 Pulse Source Pulse Oximeter Pulse Oximetry (%) 97 Oxygen Delivery Method Room Air Intake Visit Reasons: S/P Right L3-L4-L5 TFESI Baggage Checker Required: No Accompanied by: Self / Same As Patient Allergies No Known Allergies Allergy (Verified 09/16/25 09:48) HPI Comments Details: History of Present Illness The patient is an 80 year old male presenting for a one-month follow-up visit after receiving a right L3-L5 transforaminal epidural steroid injection. He reports a history of spinal stenosis and significant low back pain, which he described as causing him to be in agony prior to the procedure. Previous treatments with other providers included ineffective medications such as gabapentin. Since the epidural steroid injection one month ago, the patient reports a 95% improvement in his back pain. He notes he occasionally experiences a jolt of pain with certain movements. He has never experienced associated neurological symptoms such as leg weakness, numbness, tingling, or incontinence. The patient uses a cane for balance and as a security blanket but does not feel he needs it for ambulation. His current exercise consists of using a recumbent bike at the gym. Pain Description - Location: Low back. - Severity: Current pain is 1/10, which is a 95% improvement from his baseline before the injection. - Quality: Currently described as an occasional jolt with unexpected movements. - Alleviating Factors: Reports significant relief following a right L3-5 transforaminal epidural steroid injection. Pain Management - Analgesia: The patient reports his pain is currently 1/10 and has had 95% pain relief from a right L3-L5 transforaminal epidural steroid injection. - Activities of Daily Living: The patient is able to go to the gym to use a recumbent bike. - Affect: The patient is very happy with his current pain control and wants to maintain a quality of life where he can be relatively pain-free. - Adverse Effects: The patient reports previously taking gabapentin, which he found to be ineffective and a disaster. - Aberrant Drug Related Behaviors: None discussed. [facility] Medical History (Updated 08/04/25 @ 09:53 by Jimmy Cooper MD) Hypothyroidism AZUCENA (obstructive sleep apnea) Hypertension Chronic low back pain Chronic kidney disease Carotid artery stenosis Bipolar 1 disorder Arthritis of foot, degenerative Anxiety Allergic rhinitis Surgical History (Updated 02/02/25 @ 11:09 by Johana Fraser APRN, SEPTIC TANK SERVICE TECHNICIAN) H/O cystoscopy History of surgery Hx of laminectomy History of partial colectomy Hx of appendectomy History of tonsillectomy Social History Are you a primary medical care evaluation specialist to a significant other at home: No Do you presently have visiting nurse or other home services: No Alcohol intake: current Alcohol intake frequency: holidays/special occasions only Patient Tobacco Use Status: Former Tobacco user Tobacco use type: Cigarette Review of Systems Narrative Review of Systems - Musculoskeletal: Reports intermittent jolts of pain in the low back, but overall pain is 1/10. - Neurological: Denies weakness in his legs, numbness, and tingling. - Genitourinary: Denies incontinence. Physical Exam Exam Exam: General: awake, alert, oriented. Answers questions appropriately. Fully engaged in examination. Skin: warm, dry, intact HEENT: Normocephalic. Hearing intact. Cardiac: External chest normal in appearance. Respiratory: No cough, audible wheezing or stridor. Abdomen: without gross distension. MS: No obvious swelling or deformities. Neurological: Oriented to person, place, time and situation. Thought process intact. Ambulates with use of a cane Psychiatric: Appropriate mood and affect. Good judgment and insight. Vital Signs: Last Vital Signs Pulse 86 09/16/25 09:48 Resp 16 09/16/25 09:48 BP 177/79 H 09/16/25 09:48 Pulse Ox 97 09/16/25 09:48 Oxygen Delivery Method Room Air 09/16/25 09:48 BMI result Body Mass Index 35.0 Assessment & Plan Assessment & Plan (1) Lumbar spondylosis: Code(s): M47.816 - Spondylosis without myelopathy or radiculopathy, lumbar region Category: Medical (2) Spinal stenosis of lumbar region: Code(s): M48.061 - Spinal stenosis, lumbar region without neurogenic claudication Category: Medical (3) Radiculopathy, lumbar region: Code(s): M54.16 - Radiculopathy, lumbar region Category: Medical Plan Plan The patient has experienced significant (95%) relief from his recent right L3-5 transforaminal epidural steroid injection. He is advised that if the pain returns, the injection can be repeated. He should wait a minimum of four months between injections, and is instructed to call the office to schedule when the pain becomes more bothersome, likely in November or December. A referral will be placed to the [facility] to see Dr. Cerda's office for a neurosurgical consultation regarding his critical spinal stenosis. This will allow him to establish a relationship with a surgeon and discuss future management options, including less invasive procedures like a laminectomy, should the injections become less effective. The patient is encouraged to continue using the recumbent bike for exercise. He can also perform upper body exercises such as curls and shoulder presses with light weights and higher repetitions, but should avoid exercises that strain the back like squats, deadlifts, and leg presses. Patient was informed and verbally consented to the use of an ambient scribe for clinic note documentation during this visit. Discussion Notes I reviewed the patient's excellent response to his right L3-5 transforaminal epidural steroid injection, with him reporting 95% pain relief. I explained that we can repeat the injection if his pain returns, advising a minimum interval of 4 months, with an ideal interval of 6 months. I instructed him to call the office when he feels the need for a repeat procedure. We discussed his diagnosis of spinal stenosis. I recommended he see a neurosurgeon to establish care and get an evaluation for potential future interventions. We discussed that while steroid injections are working, surgery is often deferred, but it is good to have a relationship with a surgeon in case his condition worsens or he develops neurological deficits. I mentioned that modern spine surgery is much less invasive than older fusion techniques and that outcomes have improved. The patient agreed to the referral to better understand his options, stating his goal is to maintain quality of life. I will place a referral to the [facility] for a consultation. I also provided guidance on safe exercise, encouraging the recumbent bike and light upper body workouts, while advising against activities that heavily load the spine. Patient Instructions - Your recent back injection has provided about 95% pain relief, which is an excellent result. - If the pain starts to return and becomes bothersome, please call our office to schedule another injection. - You should wait until at least November or December before considering another injection. - A referral has been made for you to see a spine surgeon to discuss your spinal stenosis. - Their office will call you to schedule an appointment. - Continue with your current exercises, such as the recumbent bike. - You may add upper body exercises like arm curls and shoulder presses, but use light weights. - Avoid heavy lifting and exercises that strain your back, such as squats, deadlifts, and leg presses. - Call the office if your pain worsens significantly or if you develop new weakness, numbness, or tingling in your legs. Orders: Referrals Neuro Spine Referral M48.061 - Spinal stenosis, lumbar region without neurogenic claudication Coding Level of Care Code Est Pt Level 3 (76982) Add On Problem Visit Only Diagnoses Lumbar spondylosis M47.816 Spinal stenosis of lumbar region M48.061 Radiculopathy, lumbar region M54.16
[2025-09-16 09:48] VITALS: BP 177/79; PULSE 86; RESP 16; O2SAT 97; BMI 35.0
== END 2025-09-16 10:29 | disposition home or self-care (01) ==
LOC: HO.PMC 09:40
PROVIDERS: Visit Provider Registered Nurse Emergency
DX: M47.816 Spondylosis without myelopathy or radiculopathy, lumbar region (principal); M48.061 Spinal stenosis, lumbar region without neurogenic claudication; M54.16 Radiculopathy, lumbar region
CPT/HCPCS: 99213; G2211

== ENCOUNTER → 2025-09-16 09:40 | Outpatient (BNVA) | payer MEDICARE, SELFPAY | PROVIDERS: Visit Provider Registered Nurse Emergency | DX: M47.816 Spondylosis without myelopathy or radiculopathy, lumbar region (principal); M48.061 Spinal stenosis, lumbar region without neurogenic claudication; M54.16 Radiculopathy, lumbar region | CPT/HCPCS: 99212 ==

== ENCOUNTER 2025-09-23 08:57 | Outpatient (REF) | payer MEDICARE, SELFPAY ==
--- NOTE | ~2025-09-23 | XR_ITS ---
EXAMINATION: XR LUMBAR SPINE 4 OR MORE VIEWS HISTORY: M48.061 - Spinal stenosis, lumbar region without neurogenic claudication COMPARISON: Comparison is made with the prior examination dated 08/27/2024. FINDINGS: AP, and neutral, flexion, and extension lateral views of the lumbar spine are submitted. Osseous mineralization is normal. The vertebral bodies maintain normal height. There is spondylolisthesis of L4 on L5 measuring approximately 6 mm in the neutral and flexion positions and 3 mm with extension. There is slight retrolisthesis of L2 on L3 and L3 on L4. There is moderate degenerative disc disease with disc space narrowing and osteophyte formation. There is osteoarthritis of the facet joints. The visualized paraspinal soft tissues are unremarkable. XR/XR lumbar spine 4V min IMPRESSION: Diffuse moderate degenerative disc disease. Spondylolisthesis of L4 on L5 measuring 6 mm in the neutral and flexion positions and 3 mm with extension Electronically signed by: Shelton Gordillo MD 09/23/2025 10:46 AM EST
--- OUTSIDE RECORDS SUMMARY | 2025-09-23 11:58 | XMS_ITS | Clinical Summary ---
Author Organization [facility] Address [address] [place] [phone] Phone Care Team Providers Care Fisher Diving Name Role Phone Franc Prince MD Primary Care Provider [phone] Social History Tobacco Use Types Packs/Day Years Used Date Smoking Tobacco: Never Assessed Sex and Gender Information Value Date Recorded Sex Assigned at Not on file Legal Sex Male 9:08 AM EST Gender Identity Not on file Sexual Orientation Not on file Plan of Treatment Not on file Medical Devices Not on [place] [address] MEDICARE PART A & B [email or web address] MEDEX SUPPLEMENT MEDICARE PART A & B Member Subscriber Plan / Payer (Ef fective 2013-Present) Name:Agustín Law Member ID:[id number] Relation to Subscriber:Self Name:Agustín Law Subscriber ID:[id number] Payer ID:[id number] Group ID:Not on file Type:Medicare Address: [employer] [address] [place], [place] [id number] [place] [address] MEDEX SUPPLEMENT MEDICARE PART A & B [email or web address] MEDEX SUPPLEMENT MEDICARE PART A & B [email or web address] MEDEX SUPPLEMENT MEDICARE PART A & B [email or web address] MEDEX SUPPLEMENT MEDICARE PART A & B [email or web address] MEDEX SUPPLEMENT MEDICARE PART A & B [employer] MEDEX SUPPLEMENT MEDICARE PART A & B [email or web address] MEDEX SUPPLEMENT MEDICARE PART A & B Member Subscriber Plan / Payer (Ef fective 2013-Present) Name:Agustín Law Member ID:[id number] Relation to Subscriber:Self Name:Agustín Law Subscriber ID:[id number] Payer ID:[id number] Group ID:Not on file Type:Medicare Address: [employer] [address] [place] [address] [email or web address] MEDEX SUPPLEMENT Care Teams Fisher Diving Relationship Specialty Start Date End Date Franc Prince MD PCP - General Internal Medicine 12/04/15 Additional Source Comments The information contained in this document represents components of the legal health record. It is not the complete legal health record.[facility]
== END 2025-09-23 08:58 | disposition home or self-care (01) ==
LOC: HO.HOSX 08:57
PROVIDERS: Referring Provider Registered Nurse Emergency; Visit Provider Physician Assistant
DX: M48.061 Spinal stenosis, lumbar region without neurogenic claudication (principal)
CPT/HCPCS: 72110; 99202

== ENCOUNTER 2025-09-23 08:57 | Outpatient (AMB) | payer MEDICARE, SELFPAY ==
--- OUTSIDE RECORDS SUMMARY | 2025-09-23 09:18 | XMS_ITS | Patient Health Record ---
Author Organization [facility] Address [address] [place] [address] Care Team Providers Care Stock Handler Floorperson Name Role Phone Franc Prince MD Primary Care Provider Unavailab Jovanny James Unavailable [phone] Reason For Referral No Information Medications Medication SIG (Take, Route, Frequency, Duration) Notes Start Date End Date Status CeleBREX Not-Taking traMADol HCl Active Glucosamine Sulfate Active Finasteride Active Ipratropium [place] Active Simvastatin 40 mg Ac tive Aggrenox [...] X ray : Foot, right 3V 06/01/2012 [id number] Destruction, -14 03/23/2012 09576-Wprh Destruction, -14 12/04/2012 31965-Ktsl Destruction, 1-14 08/21/2012 97008, Z6248-TFMEU/INJECT, JOINT/BURSA 0 06/24/201402615, Q8220-TDLVM/INJECT, JOINT/BURSA 1 00, K2610-NVEVC/INJECT, JOINT/BURSA 1 10/26/201356080, F7382-THMWW/INJECT, JOINT/BURSA 0 10/14/201415046, Q6771-AZGWQ/INJECT, JOINT/BURSA 0 11/15/201428982,Q4598-EJW TENDON SHEATH/LIGAMENT 1 95730,M5004-RXI TENDON SHEATH/LIGAMENT 1 10/11/2011 44677,R1430-SAS TENDON SHEATH/LIGAMENT 1 11/09/2011 Insurance Providers Payer Name Payer Address Payer Phone Subscriber Number Group Number Insured Name Patient Relationship to Insured Coverage Start Date Coverage End Date [facility] [address] [facility] [place] [id number] Agustín Law Self - patient is the insured Medical (General) History Medical History History ICD Code stroke thyroid disorder measles high blood pressure prostate conditions cholesterol kidney problems Surgical History Surgery Date(Month/Year) foot surgery
--- OUTSIDE RECORDS SUMMARY | 2025-09-23 09:18 | XMS_ITS | Clinical Summary ---
Author Organization [facility] Address [address] [place] [address] Care Team Providers Care Supervisor [employer] Name Role Phone Anna Spencer Primary Care Provider [phone] Allergies Active Allergy Reactions Criticality Noted Date Comments Animal Dander Unknown 03/05/2023 House Dust Unknown 03/05/2023 Medications atorvastatin (LIPITOR) 20 mg tablet SMARTSI Tablet(s) By Mouth Daily 12/09/2022 Active azelastine (ASTELIN) 137 mcg (0.1 %) nasal spray SMARTSI [place](s) Both Nares Twice Daily PRN 01/22/2023 Active [...] 2025 2, 06/14/2022, 06/10/2021, Additional history exists COVID-19 Vaccine ( season) 2025 07/23/2021, 12/08/2020, 11/17/2020 Hepatitis B Vaccines Aged Out No long er eligible based on patient's age to complete this topic Insurance [facility] MEDICARE Care Teams Supervisor [employer] Relationship Specialty Start Date End Date Anna Spencer [address] [place] [id number] PCP - General 01/23/23
--- NOTE | 2025-09-23 09:26 | HO.SPINEOV ---
Vital Signs 09/23/25 09:38 Height 5 ft 8 in Weight 230 lb BMI 35.0 Intake Visit Reasons: Lumbar stenosis Intake Note: Mr. Law is here today c/o low back pain. MRI done at [facility]. 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 He is a very nice 80-year-old gentleman who has had a multiyear history of right-sided low back pain. The symptoms have been treated very successfully over the years with injections including median branch blocks and more recently a right L3-4, L4-5 transforaminal epidural. The patient reports 95% success rate with these injections. He has an MRI showing severe stenosis at L4-5 with a right-sided synovial cyst was well as moderate to severe stenosis at L3-4 amongst other degenerative changes. He comes in today for considering surgical opinion. The symptoms can be debilitating at times. He is able to stand and walk fairly consistently without any pain down his legs. The main symptom is the issue with the back. He goes to the gym and rides a recumbent bicycle and does okay with that. He does not have any pain at night. He will have the pain in the morning. It is generally there most of the day. Standing for a long time can be difficult. He has tried fblr-xdr-kpuazin medications before but now just takes a series of herbs to try to help the blood flow into the area of the low back. He has undergone physical therapy and acupuncture as well before without much success. PMH: He has a history of hypertension, high cholesterol, hypothyroidism, obstructive sleep apnea, he tells me he may have had a few TIAs in the past, and suspects that might be why he is on Plavix but he is not really sure why he is taking it. History of BPH, urinary tract infections, total knee replacement on the right side, TURP. He does get shortness of breath at times but does not report any cardiovascular or cardiopulmonary disease. He tells me he has been checked up by his primary care physician but does not recall specifically what tests were done, he did not see a evp general counsel. Denies any liver or kidney disease, bleeding disorders, blood clots, major abdominal surgery etc.. No history of diabetes or unusual infections. Social hx: He does not smoke drink use any recreational drugs Medications: Synthroid, carvedilol, quetiapine, Plavix, atorvastatin, amlodipine Allergies: None Physical exam: Awake alert oriented able to ambulate in the hallways with no debilitating pain, he is able to get up independently on the exam table without any help, strength normal, reflexes absent at the patella and the Achilles Imaging review: Lumbar MRI done at [place] shows severe degenerative disc disease at multiple levels, at L3-4 he has moderate to severe stenosis, at L4-5 he has a right-sided large synovial cyst in an conjunction with ligamentum hypertrophy and disc degeneration causing severe central canal stenosis. Impression: 80-year-old male presents for evaluation of a right-sided low back pain, can be aggravated with activity specially standing for any length of time but can be present when he sitting. He does not report any lower extremity symptoms. His MRI shows diffuse degenerative disc disease, with right-sided synovial cyst at L4-5 causing severe central canal stenosis and moderate to severe stenosis at L3-4. The patient has been treated quite successfully through the years with median branch blocks at L3-4 and L4-5, L5 dorsal rami ablation, and more recently underwent a right L3-L5 TFESI with 95% success. The patient is looking for more permanent solution that can mimic some of the responses he has gotten from the injections. Well typically we would treat back pain with lumbar fusion, I am wondering if Dr. Francois would be amenable to treating the synovial cyst at L4-5 on the right and adressing the stenosis in light of the response from the TFE injections he had recently. Another consideration would be to do endoscopic ligation of the median branch at L3-4 and L4-5. I will need to get a set of standing flexion-extension x-rays to rule out instability or a significant scoliotic curvature in the upright position that would warrant treatment with spinal fusion. Once I have a chance to look at the x-rays and MRI with Dr. Pennings I will get back to the patient. Thank you for allowing us to care for your patient. The total time spent with this visit with this patient was 45 minutes reviewing history, physical exam, lumbar imaging review, and implementation of treatment plan or further diagnostic testing Donald Francois MD,PhD [facility] Orders: Orders XR lumbar spine 4V min Today M48.061 - Spinal stenosis, lumbar region without neurogenic claudication Coding Level of Care Code New Pt Level 4 (14051) Diagnoses Spinal stenosis of lumbar region M48.061 Back pain M54.9
[2025-09-23 09:38] VITALS: BMI 35.0
== END 2025-09-23 11:00 | disposition home or self-care (01) ==
LOC: HO.HNS 08:57
PROVIDERS: Referring Provider Registered Nurse Emergency; Visit Provider Physician Assistant
DX: M48.061 Spinal stenosis, lumbar region without neurogenic claudication (principal); M54.9 Dorsalgia, unspecified
CPT/HCPCS: 99204

== ENCOUNTER → 2025-09-23 10:35 | Outpatient (BNV) | payer MEDICARE, SELFPAY | PROVIDERS: Referring Provider Registered Nurse Emergency; Visit Provider Radiology Diagnostic Radiology | DX: M43.16 Spondylolisthesis, lumbar region (principal) | CPT/HCPCS: 72110 ==